=== PATIENT | female | born 1950 | race Caucasian/White ===

== ENCOUNTER 2020-05-30 13:10 | Outpatient (CLI) | payer MEDICARE, SELFPAY ==
--- NOTE | ~2020-05-30 | XR_ITS ---
XR lumbar spine 2-3V DATE: 05/30/2020 13:37 INDICATION: Generalized low back pain. Lumbar radiculopathy. TECHNIQUE: AP, lateral, coned lateral lumbosacral views COMPARISON: None FINDINGS: There is diffuse osteopenia. Status post interbody spinal fusion at L5-S1. There is severe degenerative disc disease at L1-2, moderate degenerative disc disease at L2-3. L3-4 a nd L4-5 interspaces are well preserved. No fracture or bone destruction. The lumbar pedicles are intact. No spondylolisthesis. Normal sacroiliac joints. There is a very prominent amount of fecal material in the rectum and colon. IMPRESSION: Diffuse osteopenia Severe degenerative disc disease at L1-2 Moderate degenerative disc disease at L2-3 Status post interbody spinal fusion at L5-S1 Reviewed, dictated and finalized at location B. SORTER
== END 2020-05-30 13:11 | disposition home or self-care (01) ==
PROVIDERS: PCP Family Medicine; Visit Provider Family Medicine
DX: M54.16 Radiculopathy, lumbar region (principal); M51.36 Other intervertebral disc degeneration, lumbar region; Z98.1 Arthrodesis status; M85.88 Other specified disorders of bone density and structure, other site
CPT/HCPCS: 72100

== ENCOUNTER → 2020-06-10 11:01 | Outpatient (CLI) | payer MEDICARE, SELFPAY ==
--- NOTE | ~2020-06-10 | MR_ITS ---
EXAMINATION: MR lumbar spine wo con DATE: 06/10/2020 11:52 INDICATION: Lumbar radiculopathy. TECHNIQUE: Magnetic resonance imaging (MRI) of the lumbar spine was performed without intravenous con trast. Sequences included sagittal T2-weighted FSE, sagittal T2-weighted FS FSE, sagittal T1-weighted FSE, and axial T2-weighted FSE. COMPARISON: Lumbar spine radiographs 05/30/2020 FINDINGS: There is 4 degrees levocurvature of lumbar spine. There is 3 mm retrolisthesis of L1 on L2 and L2 on L3. There is a burst fracture of T11 with 1/5 loss of height, bone marrow edema, and retrop ulsion of bone 3 mm into central spinal canal. There are changes of anterior fusion procedure at L5-S 1 with interbody devices. There is severely decreased disc height at L1-L2 and mildly decreased disc height at L2-L3 with endplate remodeling. The distal spinal cord signal intensity is normal. The conu s medullaris is at L1. The following disc levels are specifically discussed: L1-L2: The disc is bulging. There is no facet joint osteoarthritis. There is mild bilateral neural fo raminal stenosis. There is mild central canal stenosis. L2-L3: The disc is bulging and has an annular fissure. There is moderate right and mild left facet lily int osteoarthritis. There is mild bilateral neural foraminal stenosis. There is mild central canal st enosis. L3-L4: The disc is bulging. There is moderate bilateral facet joint osteoarthritis. There is mild yael ateral neural foraminal stenosis. There is mild central canal stenosis. L4-L5: The disc is bulging and has an annular fissure. There is moderate bilateral facet joint osteoa rthritis. There is mild bilateral neural foraminal stenosis. There is mild central canal stenosis. L5-S1: There is mild right and moderate left facet joint osteoarthritis. There is mild lateral neural foraminal stenosis. There is no central canal stenosis. IMPRESSION: 1. Subacute T11 burst fracture. 2. Severe lumbar spondylosis. 3. Anterior fusion procedure at L5-S1. Reviewed, dictated and finalized at location A. Y ADJUSTER
== END ==
PROVIDERS: PCP Family Medicine; Visit Provider Family Medicine
DX: S22.081A Stable burst fracture of T11-T12 vertebra, initial encounter for closed fracture (principal); M43.17 Spondylolisthesis, lumbosacral region; M54.17 Radiculopathy, lumbosacral region; Z98.1 Arthrodesis status; M48.07 Spinal stenosis, lumbosacral region
CPT/HCPCS: 72148

== ENCOUNTER → 2020-06-19 09:32 | Outpatient (CLI) | payer MEDICARE, SELFPAY ==
--- NOTE | ~2020-06-19 | MR_ITS ---
EXAMINATION: MR thoracic spine wo con DATE: 06/19/2020 10:36 INDICATION: Thoracic back pain. TECHNIQUE: Magnetic resonance imaging (MRI) of the thoracic spine was performed without intravenous c ontrast. Sagittal localizer T1-weighted FSE of the cervical spine was obtained. Thoracic spine sequen logan included sagittal T2-weighted FSE, sagittal T1-weighted FSE, sagittal STIR FSE, and axial T2-weig hted FSE. COMPARISON: Lumbar spine MRI 06/10/2020 FINDINGS: Bone alignment is normal. There is a burst fracture of T12 with 1/5 loss of height, retropu lsion of bone 3 mm into central spinal canal, and bone marrow edema. There are hemangiomas in T9 and T10 vertebral bodies. There is multilevel facet joint osteoarthritis, severe at many levels. On the r ight, there is mild neural foraminal stenosis at T8-T9, T9-T10, and T10-T11. On the left, there is mi ld neural foraminal stenosis at T3-T4, T4-T5, T8-T9, T9-T10, and T11-T12. The discs do not extend bey ond the endplate margins. There is mild central canal stenosis at T11. The spinal cord signal intensi ty is normal. IMPRESSION: 1. Subacute T11 burst fracture, stable from 06/10/2020. 2. Mild thoracic spondylosis. Reviewed, dictated and finalized at location B. IELD DEFENCE GUARD
== END ==
PROVIDERS: PCP Family Medicine; Visit Provider Nurse Practitioner Adult Health
DX: M47.894 Other spondylosis, thoracic region (principal); S22.081A Stable burst fracture of T11-T12 vertebra, initial encounter for closed fracture; X58.XXXA Exposure to other specified factors, initial encounter
CPT/HCPCS: 72146

== ENCOUNTER → 2020-08-30 12:27 | Outpatient (CLI) | payer MEDICARE, SELFPAY ==
--- NOTE | ~2020-08-30 | DEXA_ITS ---
Bone Density Report Name: Caryl Holguin Age: 70 Sex: Female Ethnicity: White Date of : 1950 Indication: osteopenia; height loss; prior fracture; postmenopausal Referring Provider: Oskar, Bhavna Mohr Study: Bone densitometry was performed. Exam Date: August 30, 2020 Accession number: [id number] Bone Density: Region BMD T-score Z-score Classification AP Spine (L1-L4) 0.754 -2.7 -0.6 Osteoporosis Femoral Neck (Left) 0.563 -2.6 -0.8 Osteoporosis Total Hip (Left) 0.678 -2.2 -0.7 Osteopenia Femoral Neck (Right) 0.563 -2.6 -0.8 Osteoporosis Total Hip (Right) 0.681 -2.1 -0.7 Osteopenia Total Hip Mean 0.680 -2.2 -0.7 Osteopenia World Health Organization criteria for BMD impression classify patients as: Normal (T-score at or above -1.0), Osteopenia (T-score between -1.0 and -2.5), or Osteoporosis (T-score at or below -2.5). 10-year Fracture Risk: FRAX not reported because: Some T-score for Spine Total or Hip Total or Femoral Neck at or below -2.5 Prior hip or vertebral fracture Previous Exams: Region Exam Age BMD T-score BMD Change BMD Change Date g/cm2 vs Baseline vs Previous Total Hip(Left) 08/30/2020 70 0.678 -2.2 -0.097* -0.097* 08/15/2004 54 0.775 -1.4 Total Hip(Right) 08/30/2020 70 0.681 -2.1 -0.101* -0.101* 08/15/2004 54 0.782 -1.3 *Denotes significance at 95% confidence level, LSC for Total Hip = 0.027 g/cm2 Clinical Information Provided by Patient: Have had a previous hip or vertebral fracture Has had a low trauma fracture Patient maximum height was 64.0 Menopause Age: 54 No regular weight bearing exercise Drinks caffeinated beverages Onset of menses at age 13 Number of children 3 Impression: The patient has established osteoporosis, based on the Total Spine T-score and the existence of a prior fracture. The patient has risk factors, including: previous fracture. The BMD for the Total Hip(Left) decreased, changing by -0.097 since the last DXA exam. The BMD for the Total Hip(Right) decreased, changing by -0.101 since the last DXA exam. Discussion: HIGH RISK OF FRACTURE. BONE DENSITY IS UNDESIRABLY LOW AT ONE OR MORE SKELETAL SITES, CONSISTENT WITH POSTMENOPAUSAL OSTEOPOROSIS. This patient's lowest T-score, in a patient who has previously fractured, meets the World Health Organization's (WHO) criteria for severe osteoporosis. In untreated patients, the risk of osteoporotic fracture increases approximately two-fold for each 1.0 SD decrea
--- NOTE | ~2020-08-30 | MM_ITS ---
EXAMINATION: MM screening [facility] BI w anthony HISTORY: Screening TECHNIQUE: Craniocaudal and mediolateral oblique 3-D tomosynthesis images were obtained and synthetic 2-D images were generated. CAD analysis was submitted and interpreted. COMPARISON: Comparison to multiple prior studies sequentially, with oldest reviewed study dated 04/09. BREAST PARENCHYMAL COMPOSITION: There are scattered areas of fibroglandular density. FINDINGS: There is no evidence of suspicious mass, calcification, or architectural distortion to sugg est malignancy in either breast. There has been no suspicious interval change. IMPRESSION: 1. No mammographic evidence of malignancy. 2. Recommend routine screening mammography in one year. BI-RADS Category 1: Negative Reviewed, dictated and finalized at location A. GRAM AND LETTER PASTER
== END ==
PROVIDERS: PCP Family Medicine; Visit Provider Nurse Practitioner Obstetrics & Gynecology
DX: Z12.31 Encounter for screening mammogram for malignant neoplasm of breast (principal); Z78.0 Asymptomatic menopausal state; M81.0 Age-related osteoporosis without current pathological fracture; M85.852 Other specified disorders of bone density and structure, left thigh; M85.851 Other specified disorders of bone density and structure, right thigh
CPT/HCPCS: 77063; 77067; 77080

== ENCOUNTER → 2020-10-15 08:12 | Outpatient (CLI) | payer MEDICARE, SELFPAY ==
--- NOTE | ~2020-10-15 | XR_ITS ---
EXAMINATION: XR lumbar spine 6V w bending EXAM DATE: 10/15/2020 08:42 INDICATION: Lumbago, Thoracic back pain. Symptoms 6 months. TECHNIQUE: Lumber spine frontal, lateral, lateral L5-S1 projections for interpretation. Additional la teral flexion and lateral extension projections obtained. Comparison is made to prior examination f rom 05/30/2020. FINDINGS: There are 2 interbody devices at L5-S1. No spondylolysis suspected. There is 2-3 mm retrol isthesis L1 on L2 and L2 on L3 on all of the lateral projections. There is moderate L1-2 disc disease and mild to moderate at L2-3. There is mild to moderate lumbar facet arthropathy. Lumbar vertebral b giovani heights appear well-maintained. There is a treated T11 burst fracture. There are no acute fractur es identified. Mild lumbar levoscoliosis. Sacrum, sacroiliac joints, sacral arcuate lines are intact. Paraspinal soft tissue is unremarkable. IMPRESSION: 1. L1-2 moderate disc disease. 2. Mild to moderate facet arthropathy. 3. Mild levoscoliosis. Reviewed, dictated and finalized at location A.
--- NOTE | ~2020-10-15 | XR_ITS ---
EXAMINATION: XR thoracic spine 3V EXAM DATE: 10/15/2020 08:42 INDICATION: Lumbago, Thoracic back pain. Symptoms 6 months. TECHNIQUE: Frontal and lateral projections of the thoracic spine as well as lateral swimmers projecti on of the upper thoracic spine for interpretation. Correlation is made to MR thoracic spine 06/19/2020 . FINDINGS: There is a chronic T11 burst fracture with mild to moderate loss of this vertebral body he ight, and methylmethacrylate injection. Otherwise the thoracic vertebral body heights appear well-josh ntained. The vertebral bodies are aligned in the AP dimension. There are no bony erosions identified. Paraspinal soft tissue is unremarkable. IMPRESSION: 1. Treated chronic mild to moderate burst fracture at T11. 2. No acute findings. Reviewed, dictated and finalized at location A.
== END ==
PROVIDERS: Visit Provider Nurse Practitioner Adult Health
DX: M51.36 Other intervertebral disc degeneration, lumbar region (principal)
CPT/HCPCS: 72072; 72114

== ENCOUNTER → 2021-02-04 08:05 | Outpatient (CLI) | payer MEDICARE, SELFPAY ==
--- NOTE | ~2021-02-04 | XR_ITS ---
EXAMINATION: XR knee RT min 4V DATE: 02/04/2021 08:52 INDICATION: Right knee pain TECHNIQUE: Four views of the right knee were obtained. COMPARISON: None. FINDINGS: Alignment is normal. No fracture or osteochondral lesion. There is mild tricompartmental os teoarthritis characterized by tiny marginal osteophytes. There is a small joint effusion. Soft tissue s are unremarkable. IMPRESSION: 1. Small knee joint effusion. Reviewed, dictated and finalized at location A.
== END ==
PROVIDERS: PCP Family Medicine; Visit Provider Nurse Practitioner Adult Health
DX: M25.561 Pain in right knee (principal); M25.461 Effusion, right knee
CPT/HCPCS: 73564

== ENCOUNTER 2021-07-31 00:08 | Day surgery (SDC) | payer MEDICARE, SELFPAY ==
[2021-07-18 08:32] VITALS: BMI 26.4
[2021-07-31 06:54] VITALS: BP 125/78; PULSE 72; RESP 18; TEMP 36.1; O2SAT 100; BMI 26.4
[2021-07-31] MEDS: LACTATED RINGERS 1,000 ML 150 ML IV CONT (07:04)
--- NOTE | 2021-07-31 07:24 | WPDGICN ---
Assessment and Plan Assessment and plan (1) Encounter for screening colonoscopy: Code(s): Z12.11 - Encounter for screening for malignant neoplasm of colon Status: Acute Assessment and Plan: Patient presents for screening colonoscopy. Appears to be at average risk for colon polyps. Further recommendations will be given after endoscopy. GI Consult Note Consult date/time: 07/31/21 07:24 HPI: Caryl Holguin is a 71 year old female Presents for screening colonoscopy. Her current weight appetite and bowel movements are normal. She denies abdominal pain. She has had no bleeding. Family history is noncontributory. Last colonoscopy was in 2006. Review of Systems Review of Systems: All systems reviewed & are unremarkable except as noted in HPI and below PMFSH Past Medical History Medical History (Updated 07/31/21 @ 07:25 by Doug Sen MD) Dislocation of L4/L5 lumbar vertebra, initial encounter SUSANNAH (obstructive sleep apnea) Surgical History Surgical History (Updated 08/29/19 @ 16:34 by Michelle Raman CMA) History of shoulder surgery Family History Family History (Updated 08/03/18 @ 09:17 by DOCTOR UNKNOWN) Father Family history of malignant neoplasm of urinary bladder Social History Social History Smoking status: Never smoker Alcohol use details: Socially Spiritual care concerns: No Meds Home Medications and Allergies Home Medications Medication Instructions Recorded Confirmed Type pramipexole 1.5 mg tablet 1.5 mg PO DAILY #90 tablet 07/26/19 07/18/21 Rx valacyclovir 500 mg tablet 500 mg PO DAILY 08/30/19 07/18/21 History trazodone 50 mg tablet 25 mg PO DAILY tablet 08/31/19 07/18/21 History venlafaxine 150 mg 225 mg PO DAILY cap 08/31/19 07/18/21 History capsule,extended release 24 hr gabapentin 400 mg capsule 400 mg PO BID cap 11/29/19 07/31/21 History Allergies Allergy/AdvReac Type Severity Reaction Status Date / Time clavulanic acid Allergy Mild HIVES Unverified 07/31/21 06:50 Penicillins Allergy Mild HIVES Unverified 07/31/21 06:50 amoxicillin Allergy Unknown hives Verified 07/31/21 06:50 BETALACTAMASEIN Allergy Mild HIVES Uncoded 07/31/21 06:50 Vital Signs Vital Signs - 24 hr 07/31/21 06:54 Temperature 97 F L Pulse Rate 72 Respiratory Rate 18 Blood Pressure 125/78 Pulse Oximetry 100 Exam Narrative: physical exam reveals patient to be alert. Vital signs stable. HEENT exam is unremarkable. Patient is anicteric. Lungs are clear to auscultation and percussion. Heart is without murmur or extra sounds. Abdominal exam bowel sounds are present soft nontender with no organomegaly. Digital external rectal exam is normal.
--- NOTE | 2021-07-31 07:40 | WPDANESEPPF ---
Anes - Initial Pre Proc Eval Procedure: Operation Date: 07/31/21 08:00 Proposed Procedures p Screening Colonoscopy - Doug Sen MD Date/Time: 07/31/21 07:40 Surgeon: Doug Sen MD Pre Op Diagnosis: neoplasm screening Patient Data Age: 71 Gender: F Height: 1.63 m Weight: 69.8 kg Last Vital Signs Temp 97 F L 07/31/21 06:54 Pulse 72 07/31/21 06:54 Resp 18 07/31/21 06:54 BP 125/78 07/31/21 06:54 Pulse Ox 100 07/31/21 06:54 Allergies Allergy/AdvReac Type Severity Reaction Status Date / Time clavulanic acid Allergy Mild HIVES Unverified 07/31/21 06:50 Penicillins Allergy Mild HIVES Unverified 07/31/21 06:50 amoxicillin Allergy Unknown hives Verified 07/31/21 06:50 BETALACTAMASEIN Allergy Mild HIVES Uncoded 07/31/21 06:50 Home Medications Medication Instructions Recorded Confirmed Type pramipexole 1.5 mg tablet 1.5 mg PO DAILY #90 tablet 07/26/19 07/18/21 Rx valacyclovir 500 mg tablet 500 mg PO DAILY 08/30/19 07/18/21 History trazodone 50 mg tablet 25 mg PO DAILY tablet 08/31/19 07/18/21 History venlafaxine 150 mg 225 mg PO DAILY cap 08/31/19 07/18/21 History capsule,extended release 24 hr gabapentin 400 mg capsule 400 mg PO BID cap 11/29/19 07/31/21 History Patient hx anesthesia problems: none Family hx anesthesia problems: none Results Review: All pre-operative results and documents have been reviewed as part of the pre-operative evaluation. [facility] Past Medical History Medical History (Updated 07/31/21 @ 07:25 by Doug Sen MD) Dislocation of L4/L5 lumbar vertebra, initial encounter SUSANNAH (obstructive sleep apnea) Surgical History Surgical History (Updated 08/29/19 @ 16:34 by Michelle Raman [facility]) History of shoulder surgery Family History Family History (Updated 08/03/18 @ 09:17 by DOCTOR UNKNOWN) Father Family history of malignant neoplasm of urinary bladder Social History Social History Smoking status: Never smoker Alcohol use details: Socially Spiritual care concerns: No Anes - Eval Final PreProcedure Day of Procedure 07/31/21 07:40 Patient weight: normal Heart: regular rate and rhythm Lungs: clear to auscultation Airway: Mallampati scale class II Neurological: alert and oriented Last oral intake: >/= 8 hours ASA classification: II Emergent: no Anesthetic plan: proceed Anesthesia type and monitoring: general GIVS and standard monitoring Results Review: All pre-operative results and documents have been reviewed as part of the pre-operative evaluation. Informed Consent: The patient's anesthetic plan and its attendant risks and benefits were discussed with the patient/family/POA. Questions were solicited and answers provided to the satisfaction of the patient/family/POA.
[2021-07-31 08:15] VITALS: BP 106/64; PULSE 74; RESP 16; O2SAT 100
[2021-07-31 08:25] VITALS: BP 123/71; PULSE 70; RESP 20; O2SAT 100
[2021-07-31 08:34] VITALS: BP 134/76; PULSE 81; RESP 15; O2SAT 100
== END 2021-07-31 08:58 | disposition home or self-care (01) ==
PROVIDERS: PCP Family Medicine; Visit Provider Internal Medicine Gastroenterology
PROC: 0DJD8ZZ Inspection of Lower Intestinal Tract, Via Natural or Artificial Opening Endoscopic (ICD-10-PCS; CPT 45378; principal; 2021-07-31 08:00)
DX: Z12.11 Encounter for screening for malignant neoplasm of colon (principal); G47.33 Obstructive sleep apnea (adult) (pediatric)
CPT/HCPCS: G0121; J2704; J7120

== ENCOUNTER 2022-06-24 08:07 | Emergency (ER) | payer MEDICARE, SELFPAY ==
--- NOTE | ~2022-06-24 | CT_ITS ---
Noncontrast CT scan of the thoracic spine CLINICAL HISTORY: Back pain TECHNIQUE: Axial noncontrast imaging of the thoracic spine was performed. Sagittal and coronal reform atted images were constructed. Dose reduction technique was used on this scan by utilizing automated exposure control and iterative reconstruction technique. COMPARISON: Radiographs of the thoracic spine dated 10/15/2020 FINDINGS: Chronic compression fracture deformity of T11 with vertebroplasty cement is present, essent ially unchanged since 10/15/2020. There is a mild compression deformity of T7, probably acute, with los s of height and focal discontinuity of the superior endplate. No other fracture or subluxation seen i n the remainder of the thoracic spine. Intervertebral disc spaces are well preserved throughout the thoracic spine. No disc bulge or herniat ion identified in the thoracic level. No spinal canal stenosis, cord compression, or neural foraminal narrowing identified. Paravertebral soft tissues are unremarkable. IMPRESSION: Acute, mild compression fracture of T7. Chronic compression fracture of T11 with vertebroplasty cement, stable since 10/15/2020. Reviewed, dictated and finalized at location [] ECTRIC MACHINE OPERATOR
[2022-06-24 08:18] VITALS: BP 135/84; PULSE 81; RESP 18; TEMP 36.9; O2SAT 97
--- NOTE | 2022-06-24 08:45 | ED.GENADULT ---
HPI - General Adult General Chief complaint: Back Pain/Injury Stated complaint: back pain Time Seen by Provider: 06/24/22 08:24 History of Present Illness HPI narrative: 72-year-old female with previous history of back fracture with kyphoplasty presenting to the emergency department for evaluation of mid back pain. Patient states she moved into a new home and has been actively painting. Patient states that she was on a ladder and twisted and injured her back. Patient complains of left paraspinal back pain. Patient states she does have pain with ambulation but denies any associated numbness or weakness. Related Data Home Medications Medication Instructions Recorded Confirmed valacyclovir 500 mg tablet 500 mg PO DAILY 08/30/19 07/18/21 trazodone 50 mg tablet 25 mg PO DAILY 08/31/19 07/18/21 venlafaxine 150 mg 225 mg PO DAILY 08/31/19 07/18/21 capsule,extended release 24 hr (Effexor XR) gabapentin 400 mg capsule 400 mg PO BID 11/29/19 07/31/21 Allergies Allergy/AdvReac Type Severity Reaction Status Date / Time clavulanic acid Allergy Mild HIVES Verified 06/24/22 08:21 Penicillins Allergy Mild HIVES Verified 06/24/22 08:21 amoxicillin Allergy Unknown hives Verified 06/24/22 08:21 BETALACTAMASEIN Allergy Mild HIVES Uncoded 06/24/22 08:21 Review of Systems Review of Systems: CONSTITUTIONAL: Denies fever, chills, or sweats. EYES: Denies visual changes, redness, or discharge. ENT: Denies rhinorrhea, congestion, sore throat, or otalgia. CARDIOVASCULAR: Denies chest pain, palpitations, or edema. RESPIRATORY: Denies cough or dyspnea. GASTROINTESTINAL: Denies abdominal pain, nausea, vomiting, or diarrhea. GENITOURINARY: Denies dysuria or hematuria. SKIN: Denies rash or itching. MUSCULOSKELETAL: See HPI NEUROLOGIC: Denies headache, numbness, or weakness. [facility] Past Medical History Medical History (Updated 06/24/22 @ 11:08 by Jerardo Banks MD) Dislocation of L4/L5 lumbar vertebra, initial encounter SUSANNAH (obstructive sleep apnea) Surgical History Surgical History (Updated 08/29/19 @ 16:34 by Michelle Raman CMA) History of shoulder surgery Family History Family History (Updated 08/03/18 @ 09:17 by DOCTOR UNKNOWN) Father Family history of malignant neoplasm of urinary bladder Social History Social History Smoking status: Never smoker Alcohol use details: Socially Spiritual care concerns: No Exam Narrative: APPEARANCE: Well appearing, no pain, no distress, well-nourished. HEAD: normocephalic, atraumatic. EYES: PERRLA/EOMI, conjunctivae clear. NOSE: Normal no drainage NECK: Supple. No adenopathy, no masses. RESPIRATORY: Airway patent, respirations nonlabored. Clear to auscultation bilaterally, no rales, rhonchi, wheezing. CARDIOVASCULAR: Regular rate and rhythm without murmurs rubs or gallops. ABDOMINAL: Soft, nontender, nondistended, normal bowel sounds MUSCULOSKELETAL: Moves all extremities. Strength/ROM intact, No edema, No calf tenderness. Thoracic spine tenderness to palpation more left paraspinal tenderness than midline. No deformities or step-offs NEURO: Alert. Cranial nerves II through XII intact. Grossly intact SKIN: Warm, dry. Normal Color Course Course Emergency Course: Patient does have a T7 compression fracture. Case was discussed with Dr. López. Patient with TLSO and patient was comfortable for the plan for discharge and close follow-up. Patient will be provided medications for pain control for home. Vital Signs Vital signs: Vital Signs Temperature 98.4 F 06/24/22 08:18 Pulse Rate 81 06/24/22 08:18 Respiratory Rate 18 06/24/22 08:18 Blood Pressure 135/84 06/24/22 08:18 Pulse Oximetry 97 06/24/22 08:18 Oxygen Delivery Room Air 06/24/22 08:18 Temperature 98.4 F 06/24/22 08:18 Pulse Rate 81 06/24/22 08:18 Respiratory Rate 18 06/24/22 08:18 Blood Pressure 135/84 06/24/22 08:18 Pulse Oximetry 97 06/24/22 08:18 Oxygen Delivery R
[2022-06-24] MEDS: HYDROcodone/acetaminophen (*CRX) 5-325 MG TABLET 1 TAB PO (09:48)
--- NOTE | 2022-06-24 10:51 | PC.NURSE ---
Ambulated to bathroom. Reports pain decreased with abd. binder in place. Gait steady.
== END 2022-06-24 11:26 | disposition home or self-care (01) ==
PROVIDERS: Emergency Provider Emergency Medicine; PCP Family Medicine
DX: S22.060A Wedge compression fracture of T7-T8 vertebra, initial encounter for closed fracture (principal); G47.33 Obstructive sleep apnea (adult) (pediatric); X50.9XXA Other and unspecified overexertion or strenuous movements or postures, initial encounter
CPT/HCPCS: 72128; 99284; A9270

== ENCOUNTER 2023-03-01 17:02 | Outpatient (CLI) | payer MEDICARE, SELFPAY ==
[2023-03-01 18:02] LABS: Basophils Percent Auto 0.6 % (0.2-1.2); Eosinophils Percent Auto 0.6 % (0-4.4); Hematocrit 42.2 % (37.0-47.0); Hemoglobin 13.6 g/dL (12.0-15.0); Immature Granulocyte Absolute 0.01 K/mm3 (0.00-0.031); Immature Granulocyte Percent A 0.3 % (0-0.5); Lymphocytes Absolute Auto 1.32 K/mm3 (0.9-3.2); Lymphocytes Percent Auto 39.2 % (18.3-44.2); Mean Corpuscular HGB Conc 32.2 g/dl (32-36); Mean Corpuscular Volume 96.1 fl (80-100); Mean Platelet Volume 9.9 fl (7.4-10.4); Monocytes Absolute Auto 0.3 K/mm3 (0.1-0.6); Monocytes Percent Auto 8.9 % (2.6-8.5); Neutrophils Absolute Auto 1.7 K/mm3 (1.3-6.7); Neutrophils Percent Auto 50.4 % (45.5-73.1); Platelet Count Result 211 k/mm3 (150-375); Red Blood Count 4.39 M/mm3 (4.2-5.4); Red Cell Distribution Width 12.7 % (11.5-14.5); White Blood Count 3.4 K/mm3 (4.5-10.0)
[2023-03-01 18:19] LABS: Alanine Aminotransferase 23 U/L (6-35); Albumin Level 4.4 g/dL (3.5-5.1); Alkaline Phosphatase 61 U/L (38-126); Anion Gap 4 mmol/L (8-16); Aspartate Amino Transferase 22 U/L (14-36); Bilirubin,Total 0.6 mg/dL (0.2-1.3); Blood Urea Nitrogen 14 mg/dL (7-17); Calcium 8.7 mg/dL (8.4-10.2); Carbon Dioxide 31 mmol/L (22-30); Chloride 101 mmol/L (98-107); Estimated Glomerular Filt Rate > 60; Glucose 92 mg/dL (65-110); Potassium 3.7 mmol/L (3.4-5.0); Sodium 136 mmol/L (137-145)
[2023-03-01 18:57] LABS: Free T4 Free Thyroxine 1.05 ng/mL (0.78-2.19); Vitamin D 25 Hydroxy 43.3 ng/mL
[2023-03-01 20:01] LABS: Hemoglobin A1C 5.7 % (<5.7)
== END 2023-03-01 17:03 | disposition home or self-care (01) ==
LOC: ANHLAB 17:04
PROVIDERS: PCP Family Medicine; Visit Provider Family Medicine
DX: E78.5 Hyperlipidemia, unspecified (principal); E55.9 Vitamin D deficiency, unspecified; E53.8 Deficiency of other specified B group vitamins; R73.9 Hyperglycemia, unspecified
CPT/HCPCS: 36415; 80053; 82306; 82607; 83036; 84439; 84443; 85025

== ENCOUNTER → 2023-03-09 13:20 | Outpatient (CLI) | payer MEDICARE, SELFPAY ==
--- NOTE | ~2023-03-09 | DEXA_ITS ---
Bone Density Report Name: MINDY CARBAJAL Age: 72 Sex: Female Ethnicity: White Date of : 1950 Indication: postmenopausal osteoporosis; height loss; prior fracture; Referring Provider: OSMAR SNIDER Study: Bone densitometry was performed. Exam Date: March 09, 2023 Accession number: [id number] Bone Density: Region BMD T-score Z-score Classification AP Spine (L1-L4) 0.744 -2.8 -0.5 Osteoporosis Femoral Neck (Left) 0.548 -2.7 -0.8 Osteoporosis Total Hip (Left) 0.674 -2.2 -0.6 Osteopenia Femoral Neck (Right) 0.565 -2.6 -0.7 Osteoporosis Total Hip (Right) 0.663 -2.3 -0.7 Osteopenia Total Hip Mean 0.669 -2.3 -0.7 Osteopenia World Health Organization criteria for BMD impression classify patients as: Normal (T-score at or above -1.0), Osteopenia (T-score between -1.0 and -2.5), or Osteoporosis (T-score at or below -2.5). 10-year Fracture Risk: FRAX not reported because: Some T-score for Spine Total or Hip Total or Femoral Neck at or below -2.5 Prior hip or vertebral fracture Previous Exams: Region Exam Age BMD T-score BMD Change BMD Change Date g/cm2 vs Baseline vs Previous AP Spine(L1-L4) 03/09/2023 72 0.744 -2.8 -0.011 -0.011 08/30/2020 70 0.754 -2.7 Total Hip(Left) 03/09/2023 72 0.674 -2.2 -0.102* -0.005 08/30/2020 70 0.678 -2.2 -0.097* -0.097* 08/15/2004 54 0.775 -1.4 Total Hip(Right) 03/09/2023 72 0.663 -2.3 -0.119* -0.018 08/30/2020 70 0.681 -2.1 -0.101* -0.101* 08/15/2004 54 0.782 -1.3 *Denotes significance at 95% confidence level, LSC for AP Spine = 0.022 g/cm2, LSC for Total Hip = 0.027 g/cm2 Clinical Information Provided by Patient: Have had a previous hip or vertebral fracture Has had a low trauma fracture Has used the following medications: Vitamin D Patient maximum height was 64.0 Menopause Age: 54 Drinks caffeinated beverages Onset of menses at age 13 Number of children 3 Impression: The patient has established osteoporosis, based on the Total Spine T-score and the existence of a prior fracture. The patient has risk factors, including: previous fracture. No significant bone loss was observed. Discussion: HIGH RISK OF FRACTURE. BONE DENSITY IS UNDESIRABLY LOW AT ONE OR MORE SKELETAL SITES, CONSISTENT WITH POSTMENOPAUSAL OSTEOPOROSIS. This patient's lowest T-score, in a patient who has previously fractured, meets t
--- NOTE | ~2023-03-09 | MM_ITS ---
EXAMINATION: MM screening [facility] BI w anthony HISTORY: Screening mammogram TECHNIQUE: Craniocaudal and mediolateral oblique 3-D tomosynthesis images were obtained and synthetic 2-D images were generated. CAD analysis was submitted and interpreted. COMPARISON: 08/30/2020, 11/30/2017, 05/16/2013 BREAST PARENCHYMAL COMPOSITION: There are scattered areas of fibroglandular density. FINDINGS: No suspicious mass, calcification, or architectural distortion are identified in either jayden ast to suggest malignancy. There has been no suspicious interval change. IMPRESSION: 1. No mammographic evidence of malignancy. 2. Recommend routine screening mammography in one year. BI-RADS Category 1: Negative Reviewed, dictated and finalized at location A.
== END ==
PROVIDERS: PCP Student in an Organized Health Care Education/Training Program; Visit Provider Family Medicine
DX: Z12.31 Encounter for screening mammogram for malignant neoplasm of breast (principal); M81.0 Age-related osteoporosis without current pathological fracture; Z78.0 Asymptomatic menopausal state; M85.852 Other specified disorders of bone density and structure, left thigh; M85.851 Other specified disorders of bone density and structure, right thigh
CPT/HCPCS: 77063; 77067; 77080

== ENCOUNTER 2024-06-03 18:23 | Emergency (ER) | payer MEDICARE, SELFPAY ==
[2024-06-03 18:27] VITALS: BP 119/64; PULSE 85; RESP 18; TEMP 36.5; O2SAT 100
--- NOTE | 2024-06-03 18:58 | ED_ITS ---
HPI - Wound/Laceration General Chief Complaint: Wound/Laceration Stated Complaint: finger lac Time Seen by Provider: 06/03/24 18:27 Source: patient Mode of arrival: ambulatory Limitations: no limitations History of Present Illness HPI narrative: Patient is a 73 y/o female who presents to the ED with c/o laceration to her L thumb. Patient reports she was cutting onions prior to arrival when the knife slipped and she sustained a laceration to her L thumb. Went to her an and was referred here for further evaluation. Tetanus UTD. No other injuries. No numbness. Related Data Home Medications Medication Instructions Recorded Confirmed trazodone 50 mg tablet 25 mg PO DAILY 08/31/19 07/18/21 venlafaxine 150 mg 225 mg PO DAILY 08/31/19 07/18/21 capsule,extended release 24 hr (Effexor XR) gabapentin 400 mg capsule 400 mg PO BID 11/29/19 07/31/21 Allergies Allergy/AdvReac Type Severity Reaction Status Date / Time clavulanic acid Allergy Mild HIVES Verified 06/03/24 18:30 Penicillins Allergy Mild HIVES Verified 06/03/24 18:30 amoxicillin Allergy Unknown hives Verified 06/03/24 18:30 BETALACTAMASEIN Allergy Mild HIVES Uncoded 06/03/24 18:30 Review of Systems Review of Systems: All systems reviewed & are unremarkable except as noted in HPI. All systems reviewed & are unremarkable except as noted in HPI and below PMFSH Past Medical History Medical History Dislocation of L4/L5 lumbar vertebra, initial encounter SUSANNAH (obstructive sleep apnea) Screening for breast cancer Surgical History Surgical History History of shoulder surgery Family History Family History Father Family history of malignant neoplasm of urinary bladder Social History Social History Smoking status: Never smoker Alcohol intake: current Alcohol use details: Socially Substance use: never Living arrangements: alone Occupation/Education: occupation Additional occupation/education comments: [employer] Gender identity (if verbalized by the patient): Female Sexual Orientation (if Verbalized by the Patient): Straight or Heterosexual Spiritual care concerns: No Exam Narrative: GENERAL: Well appearing, non-toxic, in no acute distress. HEAD: Normocephalic, atraumatic. RESPIRATORY: Airway patent, respirations nonlabored. CARDIOVASCULAR: Regular rate and rhythm MUSCULOSKELETAL: Moves all extremities. No gross deformities. SKIN: Warm, dry, normal color. Curvilinear laceration to lateral edge of L thumb finger pad, end alongs edge of nail plate but no nail involvement. Minimal active bleeding. NEURO: A&O X3. Speech clear. PSYCHIATRIC: Appropriate mood and affect. Normal interaction. Course Vital Signs Vital signs: Vital Signs Temperature 97.7 F 06/03/24 18:27 Pulse Rate 85 06/03/24 18:27 Respiratory Rate 18 06/03/24 18:27 Blood Pressure 119/64 06/03/24 18:27 Pulse Oximetry 100 06/03/24 18:27 Oxygen Delivery Room Air 06/03/24 18:27 Temperature 97.7 F 06/03/24 18:27 Pulse Rate 85 06/03/24 18:27 Respiratory Rate 18 06/03/24 18:27 Blood Pressure 119/64 06/03/24 18:27 Pulse Oximetry 100 06/03/24 18:27 Oxygen Delivery Room Air 06/03/24 18:27 Procedures Laceration Laceration 1: Date: 06/03/24 Time: 19:40 Site: hand (thumb) Side (If applicable): left Size (cm): 1 Description: linear Depth: simple, single layer Local Anesthetic: lidocaine 1% Amount of anesthesia used (mL): 3 Pre-repair: wound explored and irrigated ====== Skin Level ====== Skin layer closed with: nylon Size (cm): 5-0 Number of sutures: 2 Technique: simple, interrupted ====== Subcutaneous Layer ====== ====== Muscle Layer ====== ====== Tendon Layer ====== MDM - Wound/Laceration MDM Narrative Medical decision making narrative: Laceration repaired w/o complications. Tetanus UTD. Patient neurovascularly intact. Given wound care instructions and reasons to return. D/C in stable condition. Medical Records Attestation: I reviewed the patient's medical records. Discharge Plan Discharge Clinical Impression: Laceration of left thumb Qualifiers: Encounter type: initial encounter Damage to nail status: without damage Foreign body presence: without foreign body Qualified Code(s): S61.012A - Laceration without foreign body of left thumb without damage to nail, initial encounter Patient Disposition: Home, Self-Care Condition: Stable Instructions: Antibiotic Form, Care For Your Stitches (ED), Laceration (ED) Additional Instructions: Return to the ED or visit an urgent care or your PCP for follow-up and wound check/suture removal in 10 to 14 days. Keep the wound as dry as possible for 24 hours. You may remove the bandage after 24 hours and wash with simple soap and water, but do not scrub. Re-bandage as needed. Return to the ED if you e xperience uncontrolled bleeding, fever, chills, pus-like drainage, or redness/swelling/warmth surrounding the wound, as these could be signs of an infection. Prescriptions: No Action venlafaxine [Effexor XR] 150 mg capsule,extended release 24hr 225 mg PO DAILY trazodone 50 mg tablet 25 mg PO DAILY gabapentin 400 mg capsule 400 mg PO BID pramipexole 1.5 mg tablet 1.5 mg PO DAILY Qty: 90 2RF Rx Instructions: Take 1 tablet by mouth 1-2 hours before bedtime. valacyclovir 500 mg tablet 500 mg PO DAILY Qty: 30 6RF Follow-up/Referrals: Tiffany Strickland MD [Primary Care Provider] - Time of Disposition: 19:47
== END 2024-06-03 20:18 | disposition home or self-care (01) ==
PROVIDERS: Emergency Provider Physician Assistant; PCP Family Medicine
DX: S61.012A Laceration without foreign body of left thumb without damage to nail, initial encounter (principal); W26.0XXA Contact with knife, initial encounter; Y93.G1 Activity, food preparation and clean up; G47.33 Obstructive sleep apnea (adult) (pediatric)
CPT/HCPCS: 12001; 99282

== ENCOUNTER 2024-08-24 12:33 | Outpatient (CLI) | payer MEDICARE, SELFPAY ==
--- NOTE | ~2024-08-24 | XR_ITS ---
Right wrist Technique: PA, oblique, lateral, and ulnar deviation views were obtained. Clinical History: Pain Findings: No acute fracture or dislocation is seen. Chronic nonunited ulnar styloid process fracture present. Joint spaces are preserved. Soft tissues are unremarkable. Impression: No acute abnormality. 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 Reviewed, dictated and finalized at [facility]. LATOR HELPER Impression: No acute abnormality. 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
== END 2024-08-24 12:34 | disposition home or self-care (01) ==
LOC: MICIMG 12:35
PROVIDERS: PCP Family Medicine; Visit Provider Nurse Practitioner Family
DX: M25.531 Pain in right wrist (principal)
CPT/HCPCS: 73110

== ENCOUNTER 2025-01-25 07:18 | Outpatient (CLI) | payer MEDICARE, SELFPAY ==
--- NOTE | ~2025-01-25 | MM_ITS ---
EXAMINATION: MM screening amilcar BI w anthony HISTORY: Screening TECHNIQUE: Craniocaudal and mediolateral oblique 3-D tomosynthesis images were obtained and synthetic 2-D images were generated. CAD analysis was submitted and interpreted. COMPARISON: Comparison to multiple prior studies sequentially, with oldest reviewed study dated 11/30. BREAST PARENCHYMAL COMPOSITION: Not Dense: The breasts are almost entirely fatty. FINDINGS: There is no evidence of suspicious mass, calcification, or architectural distortion to sugg est malignancy in either breast. There has been no suspicious interval change. IMPRESSION: 1. No mammographic evidence of malignancy. 2. Recommend routine screening mammography in one year. BI-RADS Category 1: Negative Reviewed, dictated and finalized at location B.
== END 2025-01-25 07:19 | disposition home or self-care (01) ==
LOC: MICIMG 07:19
PROVIDERS: PCP Family Medicine; Visit Provider Family Medicine
DX: Z12.31 Encounter for screening mammogram for malignant neoplasm of breast (principal)
CPT/HCPCS: 77063; 77067

== ENCOUNTER 2025-02-06 22:34 | Emergency (ER) | payer MEDICARE, SELFPAY ==
--- NOTE | ~2025-02-06 | XR_ITS ---
HISTORY: Knee pain medial side COMPARISON: None TECHNIQUE: 3 views of right knee were performed FINDINGS: No acute or subacute fracture. Medial tibiofemoral joint space narrowing is identified sclerosis of the medial tibial plateau. No suprapatellar joint effusion is identified. The infrapatellar joint space is clear. IMPRESSION: Degenerative disease without acute fracture Reviewed, dictated and finalized at location A.
--- OUTSIDE RECORDS SUMMARY | 2025-02-06 22:37 | XMS_ITS ---
Author Organization [facility] Address [address] [place] [id number] Care Team Providers Care Production Superintendent Hydro Name Role Phone Dr. Tiffany Strickland Primary Care Provider [phone] Migration, Provider Unavailable Unavailable Allergies Allergen (clinical drug ingredient) Drug/Non Drug Allergy documented on EMR Reaction Allergy Type Onset Date Status amoxicillin / clavulanate Augmentin *Unknown Drug Allergy 01/27/2021 Active REASON FOR VISIT EMR-Mason Medications Medication SIG (Take, Route, Frequency, Duration) Notes Start Date End Date Status valACYclovir HCl 500 MG Tablet 1 Oral every day; Duration: 90 05/16/2024 05/10/2025 Active Venlafaxine HCl ER 75 MG Capsule Extended Release 24 Hour 3 Oral every day; Duration: 90 01/10/2024 01/03/2025 Active Gabapentin 400 MG Capsule 1 Oral two kale es a day; Duration: 90 03/27/2024 03/21/2025 Active Alendronate Sodium 70 MG Tablet Oral; Duration: 84 03/27/2024 02/25/2025 Active traZODone HCl 50 MG Tablet Oral; Duration: 90 07/202301/03/2025 Active Vitamin D3 50 MCG (1999 UT) Tablet 2.5 Oral every day; Duration: 0 08/28/2022 Active Pramipexole Dihydrochloride 1.5 MG Tablet Oral; Duration: 90 12/25/2023 12/18/2024 Active Social History Social History Additional Details Category Social Info Options Details Migrated Social History Migrated Social History Tobacco history:Never smoker , Marital status: , Alcohol history:Currently drinks alcohol ,notes : social Encounters Encounter Location Date Provider Diagnosis [facility] [address] [place] [address] 06/11/2024 Provider Migration Plan Of Treatment Next Appt Details Provider Name:Dr. Tiffany morejon, 02/19/2025 10:00:00 AM, [address] [facility], [place], [address], [phone] Progress Notes * Caryl CARBAJALDOB: 1 (74 yo F)Acc No.[id number]:06/11/2024 Patient: Caryl JAIME :1950 A ge:73 Y S ex:Female Phone: Address:[address] [place], [place] [address] [place], [place], [address] Subjective: * Chief Complaints: * E MR-Mason * Surgical History: kyphoplasty ,notes : x 2 Vertebrae fusion ,notes : L4-L5; Dr. Giron 09/1996 shoulder surgery ,notes : Right; Dr. Horne and Left 2015 Finger surgery 07/10/2010 * Family History: F ather: Bladder cancer, D iabetes mellitus Type 2. M other: CAD. * Social History: M igrated Social History: M igrated Social History: Tobacco history:Never smoker,Marital status:,Alcohol history:Currently drinks alcohol ,notes : social. * Medications: T akingtraZODone HCl 50 MG Tablet Oral , stop date 01/03/2025Pramipexole Dihydrochloride 1.5 MG Tablet Oral , stop date 12/18/2024lendronate Sodium 70 MG Tablet Oral , stop date 02/25/2025Vitamin D3 50 MCG (1999 UT) Tablet 2.5 Oral every day valACYclovir HCl 500 MG Tablet 1 Oral every day , stop date 05/10/2025Venlafaxine HCl ER 75 MG Capsule Extended Release 24 Hour 3 Oral every day , stop date 01/03/2025Gabapentin 400 MG Capsule 1 Oral two times a day , stop date 03/21/2025Taking traZODone HCl 50 MG Tablet Oral , stop date 01/03/2025Taking Pramipexole Dihydrochloride 1.5 MG Tablet Oral , stop date 12/18/2024Taking Alendronate Sodium 70 MG Tablet Oral , stop date 02/25/2025Taking Vitamin D3 50 MCG (1999 UT) Tablet 2.5 Oral every day Taking valACYclovir HCl 500 MG Tablet 1 Oral every day , stop date 05/10/2025Taking Venlafaxine HCl ER 75 MG Capsule Extended Release 24 Hour 3 Oral every day , stop date 01/03/2025Taking Gabapentin 400 MG Capsule 1 Oral two times a day , stop date 03/21/2025 * Allergies: A ugmentin: *Unknown - Allergy - Onset Date 01/27/2021 * * Date:
--- OUTSIDE RECORDS SUMMARY | 2025-02-06 22:37 | XMS_ITS | Clinical Summary ---
Author Organization [facility] [address] [facility] Address [address] [place] [address] Care Team Providers Care Rn Progressive Care Name Role Phone Lucille Camarena NP Primary Care Provider Allergies Active Allergy Reactions Criticality Noted Date Comments Amoxicillin Other (See comments) 11/09/2024 Potassium Other (See comments) 11/09/2024 Medications venlafaxine XR (EFFEXOR-XR) 75 mg 24 hr capsule Take 1 capsule (75 mg total) by mouth 3 (three) times a day Active valACYclovir (VALTREX) 500 mg tablet Take 1 tablet (500 mg total) by mouth daily 02/03/2021 Active traZODone (DESYREL) 50 mg tablet Active pramipexole (MIRAPEX) 0.75 mg tablet take 1 tablet (0.75MG) by oral route 3 times every day Active pantoprazole DR (PROTONIX) 40 mg EC tablet Active metFORMIN XR (GLUCOPHAGE XR) 500 mg 24 hr tablet 11/05/2024 Active magnesium oxide (Madden) 500 mg (301.6 mg elemental) tablet Take 1 tablet (500 mg total) by mouth daily Active gabapentin (NEURONTIN) 100 mg capsule take 3 capsule by oral route 3 times every day Active clonazePAM (KlonoPIN) 0.5 mg tablet Active Active Problems Problem Noted Date Diagnosed Date Urinary tract infectious disease 06/19/2018 Overview (11/09/2024): UTI;Recorded Elsewhere: No Location: [facility] Source: EHR Chronic: N Practice ID: [id number] Billable Time: 01:00:00 PM Syphilis contact 11/05/2017 Overview (11/09/2024): Encounter for STD screening;Recorded Elsewhere: No Location: [facility] Source: EHR Chronic: N Practice ID: [id number] Billable Time: 10:30:00 AM Osteoarthritis of cervical spine 09/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 Encounters Date Type Department Care Team Description 11/09/2024 8:10 AM CDT - 11/09/2024 11:59 PM CDT Hospital Encounter [facility] [address] [place] [address] Discharge Disposition: Discharge to home or self care 11/09/2024 8:00 AM CDT Office Visit [facility] Orthopaedic Surgery [address] [place] [address] Advanced Medicine [address] [place] [address] [place] [address] Uma Alicea MD De Quervain's syndrome (tenosynovitis) (Primary Dx); Right wrist pain from Last 3 Months Social History Tobacco Use Types Packs/Day Years Used Date Smoking Tobacco: Never Smokeless Tobacco: Never Tobacco Cessation:Counseling Given: Not Answered Comments Unknown Sex and Gender Information Value Date Recorded Sex Assigned at Not on file 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 Gender Identity Not on file Sexual Orientation Not on file Obstetrics History Last Filed Vital Signs Vital Sign Reading Time Taken Comments Blood Pressure - - Pulse - - Temperature - - Respiratory Rate - - Oxygen Saturation - - Inhaled Oxygen Concentration - - Weight 79.4 kg (175 lb) 11/09/2024 7:59 AM CDT Height 160 cm (5' 3) 11/09/2024 7:59 AM CDT Body Mass Index 31 11/09/2024 7:59 AM CDT Plan of Treatment Health Maintenance Due Date Last Done Comments Breast Cancer Screening-Mammogram 1950 Colon Cancer Screening-Colonoscopy 1950 Depression Screening 1950 Fall Risk Assessment 1950 Hepatitis C Screening 1950 Osteoporosis Screening-Bone Density Scan 1950 DTaP/Tdap/Td Vaccine (1 - Tdap) 1962 Hepatitis B Screening 1969 Zoster Vaccine (1 of 2) 2001 Well Visit 65+ 2016 Pneumococcal vaccine 65+ (2 of 2 - PPSV23) 08/16/2018 08/16/2017 Influenza Vaccine (#1) 2025 05/30/2020, 2013 Procedures Procedure Name Priority Date/Time Associated Diagnosis Comments XR TRANSFER OF OUTSIDE FILMS Routine 11/09/2024 8:10 AM CDT [place] INJECTION 1 TENDON SHEATH/LIGAMENT APONEUROSIS Routine 11/09/2024 8:00 AM CDT De Quervain's syndrome (tenosynovitis) from Last 3 Months Results * XR Outside Reference (11/09/2024 8:10 AM CDT) Impressions [facility] - 11/09/2024 8:10 AM CDT These images are for Reference purposes only and have not been reviewed by [facility] Radiology. There will be no report generated by a [facility] Radiologist. Narrative [facility] - 11/09/2024 8:10 AM CDT EXAMINATION: Images For Reference Purposes Only us Uma Alicea MD IMG XR PROCEDURES Final Result [facility] * [place] INJECTION 1 TENDON SHEATH/LIGAMENT APONEUROSIS (11/09/2024 8:00 AM CDT) Narrative Uma Alicea MD - 11/09/2024 8:00 AM CDT Uma Alicea MD 11/09/2024 8:33 AM De Judah's injection: R extensor compartment 1 Performed by: Uma Alicea MD Authorized by: Uma Alicea MD De Quervain's Injection: Consent Given by: Patient Timeout: prior to procedure the correct patient, procedure, and site was verified Verbal consent obtained?: Yes Supporting Documentation: Indications: Tendon swelling and pain Procedure Details: Condition: de Quervain's Site: R extensor compartment 1 Prep: patient was prepped using a clean technique Needle gauge: 25G. Approach: Radial Medications: 0.5 mL lidocaine 10 mg/mL (1 %); 40 mg methylPREDNISolone acetate 40 mg/mL Patient tolerance: Patient tolerated the procedure well with no immediate complications Injection. After a discussion of the pros, cons, risks, and benefits of a cortisone injection, the patient requested that we proceed. We specifically discussed the risks of skin lightening, subcutaneous fat atrophy, pain upon injection and the possibility of a flare reaction. The patient wished to proceed. A sterile preparation was performed with betadine. The injection was provided with 40 mg of depomedrol in 0.5cc of lidocaine in a pH balanced solution using a 25 gauge needle. The patient tolerated the procedure well. us Uma Alicea MD IN CLINIC/BEDSIDE ORDERA BLES Final Result from Last 3 Months Insurance [employer] CHOICE MEDICARE PPO Care Teams Rn Progressive Care Relationship Specialty Start Date End Date Lucille Camarena NP [address] [place] [address] PCP - General Family Medicine 08/31/24
--- OUTSIDE RECORDS SUMMARY | 2025-02-06 22:37 | XMS_ITS | Referral Summary ---
Author Organization [facility] [address] [facility] Address [address] [place] [address] Care Team Providers Care Principal Architect Name Role Phone Lucille Camarena NP Primary Care Provider Encounters Date Type Department Care Team Description 11/09/2024 8:10 AM CDT - 11/09/2024 11:59 PM CDT Hospital Encounter [facility] [address] [place] [address] Discharge Disposition: Discharge to home or self care 11/09/2024 8:00 AM CDT Office Visit [facility] Orthopaedic Surgery [address] [place] [address] Advanced Medicine 6th [place] [address] [place] [phone] Uma Alicea MD De Quervain's syndrome (tenosynovitis) (Primary Dx); Right wrist pain from Last 3 Months Allergies Active Allergy Reactions Criticality Noted Date [...] 06/19/2018 Overview (11/09/2024): UTI;Recorded Elsewhere: No Location: [facility] Source: EHR Chronic: N Practice ID: [id number] Billable Time: 01:00:00 PM Syphilis contact 11/05/2017 Overview (11/09/2024): Encounter for STD screening;Recorded Elsewhere: No Location: [facility] Source: EHR Chronic: N Practice ID: [id number] Billable Time: 10:30:00 AM Osteoarthritis of cervical spine 09/20/2009 Social History Tobacco Use Types Packs/Day Years Used Date Smoking Tobacco: Never Smokeless Tobacco: Never Tobacco Cessation:Counseling Given: Not Answered Comments Unknown Sex and Gender Information Value Date Recorded Sex Assigned at Not on file 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 Gender Identity Not on file Sexual Orientation Not on file Last Filed Vital Signs Vital Sign Reading Time Taken Comments Blood Pressure - - Pulse - - Temperature - - Respiratory Rate - - Oxygen Saturation - - Inhaled Oxygen Concentration - - Weight 79.4 kg (175 lb) 11/09/2024 7:59 AM CDT Height 160 cm (5' 3) 11/09/2024 7:59 AM CDT Body Mass Index 31 11/09/2024 7:59 AM CDT Plan of Treatment Not on file Procedures Procedure Name Priority Date/Time Associated Diagnosis Comments XR TRANSFER OF OUTSIDE FILMS Routine 11/09/2024 8:10 AM CDT [place] INJECTION 1 TENDON SHEATH/LIGAMENT APONEUROSIS Routine 11/09/2024 8:00 AM CDT De Quervain's syndrome (tenosynovitis) from Last 3 Months Results * XR Outside Reference (11/09/2024 8:10 AM CDT) Impressions [facility] - 11/09/2024 8:10 AM CDT These images are for Reference purposes only and have not been reviewed by [facility] Radiology. There will be no report generated by a [facility] Radiologist. Narrative [facility] - 11/09/2024 8:10 AM CDT EXAMINATION: Images For Reference Purposes Only us Uma Alicea MD IMG XR PROCEDURES Final Result [facility] * PA INJECTION 1 TENDON SHEATH/LIGAMENT APONEUROSIS (11/09/2024 8:00 AM CDT) Narrative Uma Alicea MD - 11/09/2024 8:00 AM CDT Uma Alicea MD 11/09/2024 8:33 AM De Quervain's injection: R extensor compartment 1 Performed by: Uma Ailcea MD Authorized by: Uma Alicea MD De Quervain'delia Injection: Consent Given by: Patient Timeout: prior [...] Insurance [employer] CHOICE MEDICARE PPO Care Teams Principal Architect Relationship Specialty Start Date End Date Lucille Camarena NP [address] [place] [address] PCP - General Family Medicine 08/31/24
--- OUTSIDE RECORDS SUMMARY | 2025-02-06 22:37 | XMS_ITS | Patient Health Record ---
Author Organization [facility] dicine Address [address] [place] [address] Care Team Providers Care Svp Of Digital Name Role Phone Dr. Tiffayn Strickland Primary Care Provider [phone] Camarena Unavailable [phone] Migration, Provider Unavailable Unavailable Allergies Allergen (clinical drug ingredient) Drug/Non Drug Allergy documented on EMR Reaction Allergy Type Onset Date Status amoxicillin / clavulanate Augmentin *Unknown Drug Allergy 01/27/2021 Active Results Component Value Reference Range Notes X ray : Wrist, right Reviewed date:10/04/2024 04:45:45 PM Interpretation: Performing Lab: Notes/Report: MAMMOGRAM, SCREENING Reviewed date:01/25/2025 01:54:43 PM Interpretation:Negative Performing Lab: Notes/Report: Negative MAMMOGRAM, SCREENING Reviewed date:01/25/2025 01:54:43 PM Interpretation:Negative Performing Lab: Notes/Report: Negative Reason For Referral Reason Ongoing right wrist pain, suspect DeQuervain's Tenosynovitis- [facility] 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 Uma Alicea Referral Priority Urgent Referral Appointment Date 11/09/2024 Medications Medication SIG (Take, Route, Frequency, Duration) Notes Start Date End Date Status Gabapentin 400 MG Capsule 1 Oral two kale es a day; Duration: 90 03/27/2024 03/21/2025 Unknown valACYclovir HCl 500 MG Tablet 1 Oral every day; Duration: 90 05/16/2024 05/10/2025 Unknown Alendronate Sodium 70 MG Tablet Oral; Duration: 84 03/27/2024 02/25/2025 Unknown metFORMIN HCl ER 500 MG Tablet Extended Release 24 Hour 1 tablet Orally twice a day; Duration: 90 days Active predniSONE 20 MG Tablet 3 tablets once a day for 2 days, 2 tablets once a day for 2 days, 1 tablet once a day for 2 days, 0.5 tablet once a day for 2 days Orally; Duration: 8 days 08/31/2024 Active traZODone HCl 50 MG Tablet 1-2 tabs at b edtime Oral daily; Duration: 90 days Active Pramipexole Dihydrochloride 1.5 MG Tablet 1 tablet Oral daily; Duration: 90 days 1-2 hours prior to bedtime Active Famotidine 20 MG Tablet 1 tablet Orally daily; Duration: 90 days As needed Unknown Vitamin D3 50 MCG (2000 UT) Tablet 2.5 Oral every day; Duration: 0 08/28/2022 Unknown Venlafaxine HCl ER 75 MG Capsule Extended Release 24 Hour 3 Oral every day; Duration: 90 Active Immunizations Vaccine Route Administration Date Status Comme nts Zoster IM Intramuscular 09/11/2021 Administered ,[facility] [place] : New immunization record ,immstatus : Complete Zoster IM Intramuscular 03/18/2022 Administered ,[facility] [place] : New immunization record ,immstatus : Complete Tdap IM Intramuscular 03/03/2023 Administered ,[facility] [place] : New immunization record ,immstatus : Complete RSV-MAb (Respiratory syncytial virus immune globulin) IM Intramuscular 03/06/2024 Administered ,[facility] : New immunization record ,immstatus : Complete Pneumococcal polysaccharide PPV23 IM Intramuscular 03/03/2023 Administered ,[facility] : N ew immunization record ,immstatus : Complete Pneumococcal conjugate PCV 13 Unknown 08/16/2017 Administered ,[facility]ourcename : Historical information -from other registry Source VFC Code: : Moderna Covid-19 Vaccine 1st dose IM Intramuscular 08/22/2020 Administered Source VFC Code: : Moderna Covid-19 Vaccine 1st dose IM Intramuscular 10/01/2020 Administered Source VFC Code: : Moderna Covid-19 Vaccine 1st dose IM Intramuscular 06/29/2021 Administered Source VFC Code: : Influenza, quadrivalent (IIV4), split virus, 6-35 months dosage IM Intramuscular 05/30/2020 Administered Source VFC Code: : Influenza, quadrivalent (IIV4), split virus, 6-35 months dosage IM Intramuscular 06/25/2022 Administered ,[place]ourc[place] : N ew immunization record ,immstatus : Complete Social History Social History Additional Details Category Social Info Options Details Migrated Social History Migrated Social History Alcohol history:Currently drinks alcohol ,notes : social , Tobacco history:Never smoker , Marital status: Problems Problem Type SNOMED Code ICD Code Onset Dates Problem Status W/U Status Risk Notes Problem Age-related osteoporosis (496010293) Age-related osteoporosis without current pathological fracture (M81.0) 01/29/20 21 Active confirmed Problem Acute bronchitis (91084546) Acute bronchitis (466.0) 06/29/20 16 Problem resolved confirmed Problem Actinic keratosis (520272) Actinic keratosis (L57.0) 11/14/19 16 Problem resolved confirmed Problem Acute cystitis (56094707) Acute cystitis without hematuria (N30.00) 08/16/19 18 Problem resolved confirmed Problem Wedge fracture of thoracic vertebra (592888239) Wedge compression fracture of T11-T12 vertebra, subsequent encounter for fracture with routine healing (S22.080D) 01/29/20 21 Active confirmed Problem Unspecified fracture of T7-T8 vertebra, initial encounter for closed fracture (S22.069A) 06/25/20 22 Active confirmed Problem Osteoarthritis (256939235) Unspecified osteoarthritis, unspecified site (M19.90) 01/29/20 21 Active confirmed Problem Seborrheic keratosis (69211210) Other seborrheic keratosis (L82.1) 09/10/19 24 Active confirmed Problem Gastro-esophageal reflux disease without esophagitis (464718801) Gastro-esophagea l reflux disease without esophagitis (K21.9) 01/29/20 21 Active confirmed Problem Restless legs syndrome (43062551) Restless legs syndrome (G25.81) 03/08/20 24 Active confirmed Problem Insomnia 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 (29400223) Insomnia due to other mental disorder (F51.05) 03/24/20 17 Active confirmed Problem Generalized anxiety disorder (36211433) Generalized anxiety disorder (F41.1) 09/12/19 22 Active confirmed Problem Hyperlipidemia (81101866) Hyperlipidemia, unspecified (E78.5) 02/28/20 23 Active confirmed Problem Vitamin D deficiency (32736552) Vitamin D deficiency, unspecified (E55.9) 01/29/20 21 Active confirmed Problem Vitamin B deficiency (05923159) Deficiency of other specified B group vitamins (E53.8) 01/29/20 21 Active confirmed Problem Leukopenia (43564737) Decreased white blood cell count, unspecified (D72.819) 03/03/20 23 Active confirmed Problem Body mass index 30.00 to 34.99 (529951046484087) Body mass index [BMI] 32.0-32.9, adult (Z68.32) Active confirmed Problem Obesity due to excess calories (243485807) Other obesity due to excess calories (E66.09) Active confirmed Problem Diarrhea (53024384) Diarrhea, unspecified (R19.7) 01/10/20 16 Problem resolved confirmed Problem Nausea (097839023) Nausea (R11.0) 01/10/20 16 Problem resolved confirmed Problem Urinary tract infectious disease (disorder) (06783312) Urinary tract infection, site not specified (N39.0) 11/14/19 16 Problem resolved confirmed Problem Pain in finger (67343679) Pain in unspecified finger(s) (M79.646) 03/06/20 16 Problem resolved confirmed Problem Pain of knee region (finding) (0058175721) Pain in unspecified knee (M25.569) 11/14/19 16 Problem resolved confirmed Problem Joint pain (25607742) Pain in unspecified joint (M25.50) 11/14/19 16 Problem resolved confirmed Problem Effusion (64688460) Effusion, other site (M25.48) 03/06/20 16 Problem resolved confirmed Problem Acute bronchitis (53978907) Acute bronchitis, unspecified (J20.9) 06/29/20 16 Problem resolved confirmed Problem Pneumonia (657371983) Pneumonia, unspecified organism (J18.9) 01/10/20 16 Problem resolved confirmed Problem Acute upper respiratory infection (38537129) Acute upper respiratory infection, unspecified (J06.9) 07/15/19 18 Problem resolved confirmed Problem Acute sinusitis (58282021) Acute sinusitis, unspecified (J01.90) 07/15/19 18 Problem resolved confirmed Problem Acute pansinusitis (2138998) Acute pansinusitis, unspecified (J01.40) 06/29/20 16 Problem resolved confirmed Problem Pneumococcal conjugate vaccination (700855497896740) Need for prophylactic vaccination against streptococcus pneumoniae (pneumococcus) (V03.82) 08/16/19 18 Problem resolved confirmed Problem Diarrhea (16563717) Diarrhea (787.91) 01/10/20 16 Problem resolved confirmed Problem Joint pain (81589310) Pain in joint, other specified sites (719.48) 11/14/19 16 Problem resolved confirmed Problem Osteoarthritis (134105581) Osteoarthrosis, unspecified whether generalized or localized, unspecified site (715.90) 03/06/20 16 Problem resolved confirmed Problem Actinic keratosis (053500) Actinic keratosis (702.0) 11/14/19 16 Problem resolved confirmed Problem Effusion of joint (779461408) Effusion of joint, other specified site (719.08) 03/06/20 16 Problem resolved confirmed Problem Urinary tract infectious disease (disorder) (41348859) Urinary tract infection, site not specified (599.0) 11/14/19 16 Problem resolved confirmed Problem Pneumonia (932780379) Pneumonia, organism unspecified (486) 01/10/20 16 Problem resolved confirmed Problem Acute sinusitis (30253000) Acute sinusitis, unspecified (461.9) 07/15/19 18 Problem resolved confirmed Problem Acute sinusitis (disorder) (93152551) Other acute sinusitis (461.8) 06/29/20 16 Problem resolved confirmed Problem Sleep disorder (88134565) Persistent disorder of initiating or maintaining sleep (307.42) 03/24/20 17 Problem resolved confirmed Problem Dysuria (32453184) Dysuria (788.1) 12/19/19 16 Inactive confirmed Problem Body mass index 25-29 - overweight (331087056) Body mass index (BMI) 28.0-28.9, adult (Z68.28) 03/03/20 23 Active confirmed Problem Prediabetes (614088086) Prediabetes (R73.03) 03/18/20 22 Active confirmed Problem Postmenopausal state (85671518) Asymptomatic menopausal state (Z78.0) 11/10/19 23 Active confirmed Vital Signs Heart Rate 72 /min 08/24/2024 Temperature 97.9 degrees Fahrenheit 08/24/2024 Respiratory Rate 18 /min 08/24/2024 Height-cm 158.75 cm 08/24/2024 Oximetry 95 % 08/24/2024 Blood pressure diastolic 88 mm Hg 08/24/2024 Weight-kg 81.01 kg 08/24/2024 Height 62.50 in 08/24/2024 Blood pressure systolic 132 mm Hg 08/24/2024 Weight 178.6 lbs 08/24/2024 BMI 32.14 kg/m2 08/24/2024 Encounters Encounter Location Date Provider Diagnosis [address] [address] 03/06/2024 Dr. Tiffany Strickland Restless legs syndrome G25.81 ; Asymptomatic menopausal state Z78.0 ; Generalized anxiety disorder F41.1 ; Prediabetes R73.03 ; Encounter for general adult medical examination without abnormal findings Z00.00 and Encounter for immunization Z23 [address] [address] 08/24/2024 Lucille Camarena Prediabetes R73.03 ; Other obesity due to excess calories E66.09 ; Body mass index [BMI] 32.0-32.9, adult Z68.32 ; Obesity, class 1 E66.811 ; Hyperlipidemia, unspecified E78.5 ; Gastro-esophageal reflux disease without esophagitis K21.9 ; Vitamin D deficiency, unspecified E55.9 and Right wrist pain M25.[address] [address] 06/10/2024 Provider Migration [address] [address] 06/11/[address] [address] 08/28/2024 [facility] [address] [address] 08/31/[address] [place] [address] 12/22/2024 Dr. Allen [place] Assessments Encounter Date Diagnosis (ICD Code) Assessment Notes Treatment Notes Treatment Clinical Notes Section Notes 03/06/2024 Generalized anxiety disorder (ICD-10 - F41.1) 03/06/2024 Restless legs syndrome (ICD-10 - G25.81) 03/06/2024 Encounter for general adult medical examination without abnormal findings (ICD-10 - Z00.00) 03/06/2024 Encounter for immunization (ICD-10 - Z23) 03/06/2024 Asymptomatic menopausal state (ICD-10 - Z78.0) 03/06/2024 Prediabetes (ICD-10 - R73.03) 08/24/2024 Prediabetes (ICD-10 - R73.03) -A1C was 6.0 last year, family hx of diabetes. Will recheck labs today 08/24/2024 Other obesity due to excess calories (ICD-10 - E66.09) 08/24/2024 Body mass index [BMI] 32.0-32.9, adult (ICD-10 - Z68.32) 08/24/2024 Obesity, class 1 (ICD-10 - E66.811) - Struggling with weight management and prediabetes. Metformin considered due to insulin resistance.- Prescribe metformin, starting with one tablet daily for the first week, then increasing to two tablets (one in the morning and one in the evening). Blood work to be conducted to monitor diabetes status. Encourage small lifestyle changes for weight management.- Risks and side effects: Potential gastrointestinal side effects from metformin, such as diarrhea. Advised to stop if severe cramping or diarrhea occurs.- Discussed various weight management strategies, including lifestyle changes and potential medication options, considering family history and personal challenges. 08/24/2024 Hyperlipidemia, unspecified (ICD-10 - E78.5) -Will check lipid panel 08/24/2024 Gastro-esophagea l reflux disease without esophagitis (ICD-10 - K21.9) -GERD controleld with meds 08/24/2024 Vitamin D deficiency, unspecified (ICD-10 - E55.9) - Will recheck Vit D 08/24/2024 Right wrist pain (ICD-10 - M25.531) - Likely De Quervain's tenosynovitis due to inflammation affecting thumb movements and wrist pain.- Referral to a hand specialist for further evaluation and potential cortisone injection. Order for a wrist X-ray to assess bone structure.- Consideration of a specific brace that locks the joint to alleviate symptoms. Plan Of Treatment Next Appt Details Provider Name:Dr. Tiffany morejon, 02/19/2025 10:00:00 AM, [address] [place], [address], [phone] Insurance Providers Payer Name Payer Address Payer Phone Subscriber Number Group Number Insured Name Patient Relationship to Insured Coverage Start Date Coverage End Date [employer] [address] [address] [place] [address] [id number] Caryl Holguin Self - patient is the insured Medical (General) History Surgical History Surgery Date(Month/Year) kyphoplasty ,notes : x 2 Vertebrae fusion ,notes : L4-L5; Dr. Bharath anders 09/1996 shoulder surgery ,notes : Right; Dr. Michael eckert and Left 2015 Finger surgery 07/10/2010
--- OUTSIDE RECORDS SUMMARY | 2025-02-06 22:37 | XMS_ITS | Data Portability ---
Author Organization [facility] Address [address] [place] [address] [place] [address] Assessment Encounter Date Assessment Date Assessment LastModified by Organization Details LastModified Time 04/29/2020 04/29/2020 Annual gynecological exam performed. Patient will come back in a year unless there are new symptoms. Not available 04/29/2020 14:43:39 Plan of Treatment Reminders Order Date Submit Date Provider Last Modified By Organization Details Last Modified Time Details Appointments None recorded. Lab None recorded. Referral None recorded. Procedures None recorded. Surgeries None recorded. Imaging DEXA, axial skeleton + vertebral fracture assessment 2019 [facility], [address] [address], [place], [address], 1 16:58:06 Medication Orders Valtrex 500 mg tablet 2019 [id number], [address] [place], [address], 0 16:51:08 Valtrex 500 mg tablet 2019 [id number], [address] [place], [address], 0 16:52:02 Effexor XR 75 mg capsule,ex tended release 2019 [id number], [address] [place], [address], 0 16:52:55 Patient TargetsNo targets recorded. Patient Instructions Encounter Date Encounter Id Patient Instructions Last Modified By Organization Details Last Modified Time 04/29/2020 [id number] [email or web address] Not available 16:50:00 Reason for Referral None Reported. Results Created Date Observation Date Name Description Value Unit Range Abnormal Flag Note LastModifiedBy Organization Detail LastModifiedTime 08/30/19 21 08/30/2020 MAMMO , scree celestino, bilat eral No observ ation record ed. [facility] [address], [place], [address], 09/05/2020 10:31:17 09/05/19 21 DEXA, axial skele ton + verte bral fract ure asses sment No observ ation record ed. aruehrup [facility] [address], [place], [address], 09/26/2020 13:19:50 Result Notes None recorded. Problems Name Problem SNOMED Code Status Onset Date Resolution Date Notes Provider Name and Address Organization Details Recorded Time Specializ ed medical examinati on Active 2010 Gynecologi rene Examinatio n;Recorded Elsewhere: No Locatio n: [facility] rce: EHR Chroni c: N Practice ID: 0001 Billa ble Time: 09:30:00 AM Not Available [facility] 0 17:29:30 Adult health examinati on Active 2013 ROUTINE MEDICAL EXAM;Recor ded Elsewhere: No Locatio n: [facility] rce: EHR Chroni c: N Practice ID: 0001 Billa ble Time: 01:00:00 PM Not Available [facility] 0 17:29:31 Screening for malignant neoplasm of rectum Active 2016 Encounter for screening for malignant neoplasm of rectum;Rec orded Elsewhere: No Locatio n: [facility] rce: EHR Chroni c: N Practice ID: 0001 Billa ble Time: 10:30:00 AM Not Available [facility] 0 17:29:[address] Concept Active 2016 Encntr for general adult medical exam w/o abnormal findings;R ecorded Elsewhere: No Locatio n: [facility] rce: EHR Chroni c: N Practice ID: 0001 Billa ble Time: 10:30:00 AM Not Available [facility] 0 17:29:30 Screening for malignant neoplasm of cervix Active 2016 Encounter for screening for malignant neoplasm of cervix;Rec orded Elsewhere: No Locatio n: [facility] rce: EHR Chroni c: N Practice ID: 0001 Billa ble Time: 10:30:00 AM Not Available [facility] 0 17:29:30 Syphilis test finding 397577109 Active 2017 Encounter for STD screening; Recorded Elsewhere: No Locatio n: [facility] rce: EHR Chroni c: N Practice ID: 0001 Billa ble Time: 10:30:00 AM Not Available [facility] 0 17:29:30 Evaluatio n finding Active 2017 Hematuria, unspecifie d;Recorded Elsewhere: No Locatio n: [facility] rce: EHR Chroni c: N Practice ID: 0001 Billa ble Time: 10:30:00 AM Not Available [facility] 0 17:29:[address] Concept Active 2017 Well woman check w/o abnormal finding;Re corded Elsewhere: No Locatio n: [facility] rce: EHR Chroni c: N Practice ID: 0001 Billa ble Time: 01:00:00 PM Not Available [facility] 0 17:29:30 Urinary tract infectiou s disease 97459419 Active 2017 UTI;Record ed Elsewhere: No Locatio n: [facility] rce: EHR Chroni c: N Practice ID: 0001 Billa ble Time: 01:00:00 PM Not Available [facility] 0 17:29:30 Emotional state finding Active 2018 Anxiety depression ;Recorded Elsewhere: No Locatio n: [facility] rce: EHR Chroni c: N Practice ID: 0001 Billa ble Time: 02:30:00 PM Not Available [facility] 0 17:29:31 Problem Notes None recorded. Procedures Surgical History Date Name Laterality Status Provider Name and Address Organization Details Recorded Time procedure on shoulder completed [facility] 04/29/2020 14:30:21 procedure on finger completed [facility] 04/29/2020 14:30:45 Arthrd ant ntrbd min dsc lum completed [facility] 04/29/2020 14:30:57 procedure on back completed [facility] 04/29/2020 14:31:04 Colonoscopy completed [facility] 04/29/2020 14:31:09 Imaging Results None recorded. Procedure Notes None recorded. Medical Equipment None Reported. Allergies Allergen ID Allergen Name Allergen Category Reaction Reaction Severity Criticality Documentation Date Start Date Code Code System Note Provider Name and Address Organization Details Recorded Time 2436 amoxicill in medicatio n Not available Not available Not available 04/29/2020 723 RxNorm [facility] 0 14:28:04 2437 potassium medicatio n Not available Not available Not available 04/29/2020 8588 RxNorm [facility] 0 14:28:10 Medications Name Sig Start Date Stop Date Status Note LastModified by Organization Details LastModified Time venlafaxi ne ER 75 mg capsule,e xtended release 24 hr TAKE 1 CAPSULE BY MOUTH THREE TIMES A DAY active Not Available Not Available No t Available trazodone 50 mg tablet active Not Available Not Available Not Available clonazepa m 0.5 mg tablet active Not Available Not Available Not Available gabapenti n 400 mg capsule active Not Available Not Available Not Available Zoloft 20 mg/mL oral concentra te take 2.5 millilit er by oral route every day and mix with 4 oz. (1/2 cup) of water, mary dany, lemon/li me soda, lemonade or orange juice ONLY 04/09 completed Prescrib ed Elsewher e: Yes Loca [facility]ion: [facility] By: haresh neff Enczander nter DateTime : 04/05/20 11 06:06:24 PM Not Available Not Available Not Available atenolol 25 mg tablet take 1 tablet by oral route every day 06/26 completed Prescrib ed Elsewher e: Yes Loca tion: [facility] By: juan carlos sepulveda DateTime : 04/09/20 11 09:30:00 AM Not Available Not Available Not Available valacyclo vir 500 mg tablet TAKE 1 TABLET BY MOUTH EVERY DAY 2020 active Not Available Not Available Not Avai lable Mirapex 0.25 mg tablet take 1 tablet (0.25MG) by oral route 3 times every day 05/03 completed Prescrib ed Elsewher e: No Locat ion: [facility] By: juan carlos sepulveda DateTime : 04/09/20 11 09:30:00 AM Not Available Not Available Not Available pantopraz ole 40 mg tablet,de layed release active Not Available Not Available Not Available Valtrex 1 gram tablet take 1 tablet by oral route every 12 hours 04/09 completed Prescrib ed Elsewher e: Yes Loca tion: [facility] By: haresh Vera nter DateTime : 04/05/20 11 06:06:24 PM Not Available Not Available Not Available gabapenti n 100 mg capsule take 3 capsule by oral route 3 times every day active Prescrib ed Elsewher e: Yes [facility] By: juan carlos sepulveda DateTime : 06/28/20 14 01:00:00 PM Not Available Not Available Not Available Vitamin D2 1,250 mcg (50,000 unit) capsule take 1 capsule (78138EU ITS) by oral route every week 06/26 completed Prescrib ed Elsewher e: No Locat ion: [facility] By: juan carlos sepulveda DateTime : 04/14/20 11 03:18:44 PM Not Available Not Available Not Available pramipexo le 1.5 mg tablet 04/29 completed Not Available Not Available Not Available Bactrim DS 800 mg-160 mg tablet take 1 tablet by oral route every 12 hours 02/28 completed Prescrib ed Elsewher e: No Locat ion: [facility] By: jose antonio morel DateTime : 06/20/20 18 01:00:00 PM Not Available Not Available Not Available Cymbalta 60 mg capsule,d elayed release take 1 capsule (60MG) by oral route every day 06/26 completed Prescrib ed Elsewher e: No Locat ion: [facility] By: juan carlos sepulveda DateTime : 04/09/20 11 09:30:00 AM Not Available Not Available Not Available Mirapex active Not Available Not Avail able Not Available Valtrex active Not Available Not Avail able Not Available gabapenti n active Not Available Not Available Not Available Mirapex 0.75 mg tablet take 1 tablet (0.75MG) by oral route 3 times every day active Prescrib ed Elsewher e: Yes Loca tion: [facility] By: juan carlos sepulveda DateTime : 05/03/20 12 08:30:00 AM Not Available Not Available Not Available Madden 500 mg magnesium tablet take 1 tablet by oral route every day active Prescrib ed Elsewher e: Yes Loca tion: [facility] By: sylvia aleman DateTime : 04/09/20 11 09:30:00 AM Not Available Not Available Not Available Madden 04/29 completed Not Available Not Available Not Available Atelvia 35 mg tablet,de layed release take 1 tablet (35MG) by oral route every week in the morning immediat radha followin g breakfas t with at least 4 oz of plain water 06/26 completed Prescrib ed Elsewher e: No Locat ion: [facility] By: juan carlos sepulveda DateTime : 05/03/20 12 08:30:00 AM Not Available Not Available Not Available Vitals Date Recorded Body height Body mass index (BMI) Body weight Systolic And Diastolic Provider Name and Address Organization Details Last Updated DateTime 04/29/2020 162.56 cm 28.2 kg/m2 35557.15 g 114/74 mm[Hg] Altagracia Ferro [facility] 04/29/2020 14:53:10 Social History None recorded. Functional Status None recorded. Mental Status None recorded. Family History Relationship Description Onset Age of this Age Resolved Age Notes LastModified by Organization Details LastModified Time Father Hypertensive disorder [email or web address] Not available 2019 14:28:56 Father Carcinoma of urinary bladder, superficial [email or web address] Not available 04/11 14:29:14 Father Diabetes mellitus [email or web address] Not available 2019 14:29:25 Mother Osteoporosis Not availa ble 04/29/2020 14:29:36 Mother Family history of restless legs syndrome [email or web address] Not available 2019 14:29:52 Notes:Father: Cancer, bladde r, Diabetes mellitus, Cancer, bladder, Hypertension Mother: Restless leg syndrome, Osteoporosis Medical History Condition Response History of abnormal pap Y Gynecological HistoryNo gynecological history recorded. Obstetrics History GPAL:G 0 P 0 0 0 0 Past Encounters Encounter ID Performer Location Encounter Start Date Encounter Closed Date Diagnosis/Indication Diagnosis SNOMED-CT Code Diagnosis ICD10 Code Diagnosis Note [id number] Bhavna Schmitt , [facility] [address] [address] 04/29/2020 14:41:32 04/29/2020 17:33:32 Gynecologic examination 95801046 Z01.419 Take Calcium with Vitamin D 12-1500mg daily. Do monthly self breast exams. It is advised to get annual flu shot in the fall and she could obtain at [facility] or [facility] care clinic. If you haven't received the Tdap vaccine in the last 10 years you should obtain one as well. Have mammogram yearly, bone density every 2-3 years and colonoscop y every 5-10 years depending on findings and history. Engage in daily exercise of low impact aerobic exercise 45-60 minutes 4-5 times weekly. Avoid tobacco and illicit drugs as well as using moderation with alcohol intake less than 1-2 8 oz beverages daily. This lifestyle behavior pattern will lead to less health conditions and longer life span. If BMI greater than 25 weight watchers or dietary consult advised. Questions have been answered. Patient appears to understand instructio ns, but if you have any further questions call or respond to this email Opts to defer pap this year due to norm hx, age, & current monogamous relationsh ip. Mammo ordered Colonoscop y UTD Dexa ordered Declines std screening Postmenopa usal osteopenia 443206660 Z78.0 Screening for malignant neoplasm of colon 831362155 Z12.11 Genital he rpes simplex 84202009 A60.9 Doing well on suppressiv e therapy but will occasional ly have a tiny outbreak during times of extreme stress which has been lately during court sessions over land with her neighbor. We agreed to continue daily & send prn BID 3 day Valtrex if needed. If this continues to happen frequently we night consider using acyclovir instead. She agrees. Will call if issues. Generalize d anxiety disorder 79451661 F41.1 Doing well on effexor. Wishes to continue. Health Concerns Section Related Observation LastModified by Organization Detai ls LastModified Time None Recorded Concern Status LastModified by Organization Details LastModified Time None Recorded Advance Directives Directive None Recorded Payers Insurance Date Sequence Insurance Name Policy Number Policy Higuera Covered Member ID Higuera Member ID Guarantor Name 05/15/2021 2 [employer] (MEDICARE SUPPLEMENT) Caryl Holguin [id number] 05/15/2021 [place] Caryl Holguin [id number] 05/15/2021 1 [place] Caryl Holguin [id number] OBGyn Episode No OBEpisode recorded.
--- OUTSIDE RECORDS SUMMARY | 2025-02-06 22:37 | XMS_ITS | Clinical Summary ---
Author Organization [facility] Address [facility] [place] [address] Care Team Providers Care Ms Sql Developer Name Role Phone Unavailable Primary Care Provider Unavailabl e Social History Tobacco Use Types Packs/Day Years Used Date Smoking Tobacco: Never Assessed Comments Unknown Sex and Gender Information Value Date Recorded Sex Assigned at Not on file Legal Sex Female 8:34 PM CDT Gender Identity Not on file Sexual Orientation Not on file Last Filed Vital Signs Vital Sign Reading Time Taken Comments Blood Pressure 94/60 05/01/2015 10:36 AM CDT Pulse 80 05/01/2015 10:36 AM CDT Temperature - - Respiratory Rate - - Oxygen Saturation - - Inhaled Oxygen Concentration - - Weight 72.6 kg (160 lb) 05/01/2015 10:36 AM CDT Height 162.6 cm (5' 4) 05/01/2015 10:36 AM CDT Body Mass Index 27.46 05/01/2015 10:36 AM CDT Plan of Treatment Health Maintenance Due Date Last Done Comments Colorectal Cancer Screening Colonoscopy (10 Years) 1951 Hepatitis C 1969 DTaP, Tdap and Td Vaccines ( 1 - Tdap) 1970 Mammogram Screening 1991 Pneumococcal Vaccine: 50+ Ye ars (1 of 1 - PCV) 2001 Zoster Vaccines (1 of 2) 2001 Dexa Scan (General) 2016 COVID-19 Vaccine ( - 2023-2 5 season) 2024 RSV Immunization or 60+ Years (1 - 1-dose 75+ series) 2026 Meningococcal B Vaccine Aged Out No l onger eligible based on patient's age to complete this topic Meningococcal Vaccine Aged Out No magali arcadio eligible based on patient's age to complete this topic RSV Immunizations Under 20 Months Aged Out No longer eligible based on patient's age to complete this topic
[2025-02-06 22:39] VITALS: BP 142/83; PULSE 79; RESP 18; TEMP 36.9; O2SAT 95
--- OUTSIDE RECORDS SUMMARY | 2025-02-07 00:02 | XMS_ITS | Referral Summary ---
Author Organization [facility] [address] [facility] Address [address] [place] [address] Care Team Providers Care Steel Pan Form Placing Supervisor Name Role Phone Lucille Camarena NP Primary Care Provider Encounters Date Type Department Care Team Description 11/09/2024 8:10 AM CDT - 11/09/2024 11:59 PM CDT Hospital Encounter [facility] [address] [place] [id number] Discharge Disposition: Discharge to home or self care 11/09/2024 8:00 AM CDT Office Visit [facility] [address] [place] [address] Advanced Medicine [address] [place] [address] [place] [id number] Uma Alicea MD De Quervain's syndrome (tenosynovitis) [...] 06/19/2018 Overview (11/09/2024): UTI;Recorded Elsewhere: No Location: [facility] Source: EHR Chronic: N Practice ID: [id number] Billable Time: 01:00:00 PM Syphilis contact 11/05/2017 Overview (11/09/2024): Encounter for STD screening;Recorded Elsewhere: No Location: [facility] Source: EHR Chronic: N Practice ID: [id number] Billable Time: 10:30:00 AM Osteoarthritis of cervical spine 09/20/2009 Social History Tobacco Use Types Packs/Day Years Used Date Smoking Tobacco: Never Smokeless Tobacco: Never Tobacco Cessation:Counseling Given: Not Answered Comments Unknown Sex and Gender Information Value Date Recorded Sex Assigned at Not on file 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 There will be no report generated by a [facility] Radiologist. Narrative [id number] - 11/09/2024 8:10 AM [...] Insurance [employer] MEDICARE PPO Care Teams Steel Pan Form Placing Supervisor Relationship Specialty Start Date End Date Lucille Camarena NP [address] [place] [address] PCP - General Family Medicine 08/31/24
--- OUTSIDE RECORDS SUMMARY | 2025-02-07 00:02 | XMS_ITS | Clinical Summary ---
Author Organization [facility] Address [facility] [place] [address] Care Team Providers Care Legal Department Manager Name Role Phone Unavailable Primary Care Provider [...]
--- OUTSIDE RECORDS SUMMARY | 2025-02-07 00:02 | XMS_ITS | Patient Health Record ---
Author Organization [facility] dicine Address [address] [place] [address] Care Team Providers Care Bush And Vine Farmer Fruit Crops Name Role Phone Dr. 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 [...] Vaccine Route Administration Date Status Comme nts Influenza, quadrivalent (IIV4), split virus, 6-35 months dosage IM Intramuscular 05/30/2020 Administered Source VFC Code: : Influenza, quadrivalent (IIV4), split virus, 6-35 months dosage IM Intramuscular 06/25/2022 Administered ,sourcename : N ew immunization record ,immstatus : Complete Moderna Covid-19 Vaccine 1st dose IM Intramuscular 08/22/2020 Administered Source VFC Code: : Moderna Covid-19 Vaccine 1st dose IM Intramuscular 10/01/2020 Administered Source VFC Code: : Moderna Covid-19 Vaccine 1st dose IM Intramuscular 06/29/2021 Administered Source VFC Code: : Pneumococcal conjugate PCV 13 Unknown 08/16/2017 Administered ,sourcename : Historical information -from other registry Source VFC Code: : Pneumococcal polysaccharide PPV23 IM Intramuscular 03/03/2023 Administered ,sourcename : N ew immunization record ,immstatus : Complete RSV-MAb (Respiratory syncytial virus immune globulin) IM Intramuscular 03/06/2024 Administered ,sourcename : New immunization record ,immstatus : Complete Tdap IM Intramuscular 03/03/2023 Administered ,sourc ename : New immunization record ,immstatus : Complete Zoster IM Intramuscular 09/11/2021 Administered ,sourc ename : New immunization record ,immstatus : Complete Zoster IM Intramuscular 03/18/2022 Administered ,sourc ename : New immunization record ,immstatus : Complete Social History Social History Additional Details Category Social Info Options Details Migrated Social History Migrated Social History Alcohol history:Currently drinks alcohol ,notes : social , Tobacco history:Never smoker , Marital status: Problems Problem Type SNOMED Code ICD Code Onset Dates Problem Status W/U Status Risk Notes Problem Obesity due to excess calories (283164932) Other obesity due to excess calories (E66.09) Active confirmed Problem Body mass index 30.00 to 34.99 (030364036355962) Body mass index [BMI] 32.0-32.9, adult (Z68.32) Active confirmed Problem Leukopenia (69920548) Decreased white blood cell count, unspecified (D72.819) 03/03/20 23 Active confirmed Problem Vitamin B deficiency (58752753) Deficiency of other specified B group vitamins (E53.8) 01/29/20 21 Active confirmed Problem Vitamin D deficiency (82835393) Vitamin D deficiency, unspecified (E55.9) 01/29/20 21 Active confirmed Problem Hyperlipidemia (71952211) Hyperlipidemia, unspecified (E78.5) 02/28/20 23 Active confirmed Problem Generalized anxiety disorder (00348500) Generalized anxiety disorder (F41.1) 09/12/19 22 Active confirmed Problem Insomnia 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 (02458430) Insomnia due to other mental disorder (F51.05) 03/24/20 17 Active confirmed Problem Restless legs syndrome (38010887) Restless legs syndrome (G25.81) 03/08/20 24 Active confirmed Problem Gastro-esophageal reflux disease without esophagitis (385157955) Gastro-esophagea l reflux disease without esophagitis (K21.9) 01/29/20 21 Active confirmed Problem Seborrheic keratosis (26363418) Other seborrheic keratosis (L82.1) 09/10/19 24 Active confirmed Problem Osteoarthritis (221273152) Unspecified osteoarthritis, unspecified site (M19.90) 01/29/20 21 Active confirmed Problem Age-related osteoporosis (037602967) Age-related osteoporosis without current pathological fracture (M81.0) 01/29/20 21 Active confirmed Problem Unspecified fracture of T7-T8 vertebra, initial encounter for closed fracture (S22.069A) 06/25/20 22 Active confirmed Problem Wedge fracture of thoracic vertebra (315758248) Wedge compression fracture of T11-T12 vertebra, subsequent encounter for fracture with routine healing (S22.080D) 01/29/20 21 Active confirmed Problem Postmenopausal state (20127372) Asymptomatic menopausal state (Z78.0) 11/10/19 23 Active confirmed Problem Prediabetes (354924009) Prediabetes (R73.03) 03/18/20 22 Active confirmed Problem Body mass index 25-29 - overweight (896103974) Body mass index (BMI) 28.0-28.9, adult (Z68.28) 03/03/20 23 Active confirmed Problem Dysuria (37079101) Dysuria (788.1) 12/19/19 16 Inactive confirmed Problem Sleep disorder (93594403) Persistent disorder of initiating or maintaining sleep (307.42) 03/24/20 17 Problem resolved confirmed Problem Acute sinusitis (disorder) (95040966) Other acute sinusitis (461.8) 06/29/20 16 Problem resolved confirmed Problem Acute sinusitis (06532437) Acute sinusitis, unspecified (461.9) 07/15/19 18 Problem resolved confirmed Problem Acute bronchitis (31492297) Acute bronchitis (466.0) 06/29/20 16 Problem resolved confirmed Problem Pneumonia (825289301) Pneumonia, organism unspecified (486) 01/10/20 16 Problem resolved confirmed Problem Urinary tract infectious disease (disorder) (91497254) Urinary tract infection, site not specified (599.0) 11/14/19 16 Problem resolved confirmed Problem Effusion of joint (139412725) Effusion of joint, other specified site (719.08) 03/06/20 16 Problem resolved confirmed Problem Actinic keratosis (218515) Actinic keratosis (702.0) 11/14/19 16 Problem resolved confirmed Problem Osteoarthritis (094015585) Osteoarthrosis, unspecified whether generalized or localized, unspecified site (715.90) 03/06/20 16 Problem resolved confirmed Problem Joint pain (41593218) Pain in joint, other specified sites (719.48) 11/14/19 16 Problem resolved confirmed Problem Diarrhea (40016120) Diarrhea (787.91) 01/10/20 16 Problem resolved confirmed Problem Pneumococcal conjugate vaccination (502793174070303) Need for prophylactic vaccination against streptococcus pneumoniae (pneumococcus) (V03.82) 08/16/19 18 Problem resolved confirmed Problem Acute pansinusitis (3317049) Acute pansinusitis, unspecified (J01.40) 06/29/20 16 Problem resolved confirmed Problem Acute sinusitis (10337332) Acute sinusitis, unspecified (J01.90) 07/15/19 18 Problem resolved confirmed Problem Acute upper respiratory infection (88327230) Acute upper respiratory infection, unspecified (J06.9) 07/15/19 18 Problem resolved confirmed Problem Pneumonia (791494343) Pneumonia, unspecified organism (J18.9) 01/10/20 16 Problem resolved confirmed Problem Acute bronchitis (00820720) Acute bronchitis, unspecified (J20.9) 06/29/20 16 Problem resolved confirmed Problem Actinic keratosis (117683) Actinic keratosis (L57.0) 11/14/19 16 Problem resolved confirmed Problem Effusion (00712202) Effusion, other site (M25.48) 03/06/20 16 Problem resolved confirmed Problem Joint pain (25341070) Pain in unspecified joint (M25.50) 11/14/19 16 Problem resolved confirmed Problem Pain of knee region (finding) (7892402997) Pain in unspecified knee (M25.569) 11/14/19 16 Problem resolved confirmed Problem Pain in finger (13726835) Pain in unspecified finger(s) (M79.646) 03/06/20 16 Problem resolved confirmed Problem Acute cystitis (34960949) Acute cystitis without hematuria (N30.00) 08/16/19 18 Problem resolved confirmed Problem Urinary tract infectious disease (disorder) (72439403) Urinary tract infection, site not specified (N39.0) 11/14/19 16 Problem resolved confirmed Problem Nausea (586185751) Nausea (R11.0) 01/10/20 16 Problem resolved confirmed Problem Diarrhea (28246420) Diarrhea, unspecified (R19.7) 01/10/20 16 Problem resolved confirmed Vital Signs Heart Rate 72 /min 08/24/2024 Temperature 97.9 degrees Fahrenheit 08/24/2024 Respiratory Rate 18 /min 08/24/2024 Height-cm 158.75 cm 08/24/2024 Oximetry 95 % 08/24/2024 Blood pressure diastolic 88 mm Hg 08/24/2024 Weight-kg 81.01 kg 08/24/2024 Height 62.50 in 08/24/2024 Blood pressure systolic 132 mm Hg 08/24/2024 Weight 178.6 lbs 08/24/2024 BMI 32.14 kg/m2 08/24/2024 Encounters Encounter Location Date Provider Diagnosis [address] [address] 03/06/2024 Dr. Tiffany Strickland Restless legs syndrome G25.81 ; Asymptomatic menopausal state Z78.0 ; Generalized anxiety disorder F41.1 ; Prediabetes R73.03 ; Encounter for general adult medical examination without abnormal findings Z00.00 and Encounter for immunization Z23 [address] [address] 08/24/2024 Lucille Camarena Prediabetes R73.03 ; Other obesity due to excess calories E66.09 ; Body mass index [BMI] 32.0-32.9, adult Z68.32 ; Obesity, class 1 E66.811 ; Hyperlipidemia, unspecified E78.5 ; Gastro-esophageal reflux disease without esophagitis K21.9 ; Vitamin D deficiency, unspecified E55.9 and Right wrist pain M25.[address] [address] 06/10/2024 Provider Migration [address] [address] 06/11/2024 Provider Markus [address] [address] 08[facility]28[facility] [address] [address] 08/31/[address] [place] [address] 12/22/2024 Dr. Allen [place] Assessments Encounter Date Diagnosis (ICD Code) Assessment [...] Tiffany morejon, 02/19/2025 10:00:00 AM, [address] [place], [address], [phone] Insurance Providers Payer Name Payer Address Payer Phone Subscriber Number Group Number Insured Name Patient Relationship to Insured Coverage Start Date Coverage End Date [employer]age [address] [address] [place] [address] [id number] Caryl Holguin Self - patient is the insured Medical (General) History Surgical History Surgery Date(Month/Year) kyphoplasty ,notes : x 2 Vertebrae fusion ,notes : L4-L5; Dr. Bharath anders 09/1996 shoulder surgery ,notes : Right; Dr. Michael eckert and Left 2015 Finger surgery 07/10/2010
--- OUTSIDE RECORDS SUMMARY | 2025-02-07 00:02 | XMS_ITS ---
Author Organization [facility] Address [address] [place] [address] Care Team Providers Care Unified Communications Architect Name Role Phone Dr. Tiffany Strickland Primary Care Provider [phone] Migration, Provider Unavailable Unavailable Allergies Allergen (clinical [...] social Encounters Encounter Location Date Provider Diagnosis [facility] [address] [place] [address] 06/11/2024 Provider Migration Plan Of Treatment Next Appt Details Provider Name:Dr. Tiffany morejon, 02/19/2025 10:00:00 AM, [address] [facility], [place], [address], [phone] Progress Notes * Caryl CARBAJALDOB: [birth year] (74 yo F)Acc No.[id number]:06/11/2024 Patient: Caryl JAIME :1950 A ge:73 Y S ex:Female Phone: Address:[address] [place], [place] [address], [place], [address] Subjective: * Chief Complaints: * E MR-Mason [...]
--- OUTSIDE RECORDS SUMMARY | 2025-02-07 00:02 | XMS_ITS | Clinical Summary ---
Author Organization [facility] [address] [facility] Address [address] [place] [address] Care Team Providers Care Group Reservations Coordinator Name Role Phone Lucille Camarena NP Primary [...] 06/19/2018 Overview (11/09/2024): UTI;Recorded Elsewhere: No Location: [facility] Source: EHR Chronic: N Practice ID: [id number] Billable Time: 01:00:00 PM Syphilis contact 11/05/2017 Overview (11/09/2024): Encounter for STD screening;Recorded Elsewhere: No Location: [facility] Source: EHR Chronic: N Practice ID: [id number] Billable Time: 10:30:00 AM Osteoarthritis of cervical spine 09/20/2009 Encounters Date Type Department Care Team Description 11/09/2024 8:10 AM CDT - 11/09/2024 11:59 PM CDT Hospital Encounter [facility] [address] [place] [address] Discharge Disposition: Discharge to home or self care 11/09/2024 8:00 AM CDT Office Visit [facility] Orthopaedic Surgery [address] [place] [address] Advanced Medicine [address] [place] [address] [place] [address] Uam Alicea MD De Quervain's syndrome (tenosynovitis) (Primary Dx); Right wrist pain from Last 3 Months Social History Tobacco Use Types Packs/Day Years Used Date Smoking Tobacco: Never Smokeless Tobacco: Never Tobacco Cessation:Counseling Given: Not Answered Comments Unknown Sex and Gender Information Value Date Recorded Sex Assigned at Not on file Legal Sex Female 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 There will be no report generated by a [facility] Radiologist. Narrative [facility] - 11/09/2024 8:10 AM CDT EXAMINATION: Images For Reference Purposes Only us Uma Alicea MD IMG XR PROCEDURES Final Result [facility] * UT INJECTION 1 TENDON SHEATH/LIGAMENT APONEUROSIS (11/09/2024 8:00 [...] Insurance [employer] CHOICE MEDICARE PPO Care Teams Group Reservations Coordinator Relationship Specialty Start Date End Date Lucille Camarena NP [address] [place] [address] PCP - General Family Medicine 08/31/24
[2025-02-07] MEDS: FAMOTIDINE 20 MG TABLET PO (00:20)
[2025-02-07] MEDS: HYDROcodone/acetaminophen (*CRX) 5-325 MG TABLET 1 TAB PO (00:20)
[2025-02-07] MEDS: ENOXAPARIN 100 MG/ML SYRINGE 85 MG SUB-Q (00:26)
--- NOTE | 2025-02-07 00:32 | PC.NURSE ---
phlebotomy at bedside to attempt to collect blood cultures
--- NOTE | 2025-02-07 00:52 | ED_ITS ---
HPI - General Adult General Chief complaint: Extremity Injury, Lower Stated complaint: right leg pain Time Seen by Provider: 02/06/25 23:00 History of Present Illness HPI narrative: This is a 74-year-old female history of chronic pain presenting with right leg pain. She says she has been having pain in right knee in the distal thigh and proximal calf for the last 3 weeks. Has gotten acutely worse over last several days. She has had some localized swelling. It is worse with movement and made it difficult to walk and drive. She has had this in the past and says is treated with an injection by her pain specialist which resolved for several years. She has not seen her pain specialist yet but she has appointment. She takes Advil at home for pain. No trauma, no fevers, patient is able to bear weight. Related Data Home Medications ?Medication ?Instructions ?Recorded ?Confirmed ?Last Taken ?Type trazodone 50 mg tablet 25 mg PO DAILY 08/31/19 07/18/21 Unknown History venlafaxine 150 mg 225 mg PO DAILY 08/31/19 07/18/21 Unknown History capsule,extended release 24 hr (Effexor XR) gabapentin 400 mg capsule 400 mg PO BID 11/29/19 07/31/21 07/30/21 History Allergies Allergy/AdvReac Type Severity Reaction Status Date / Time clavulanic acid Allergy Mild HIVES Verified 02/06/25 22:36 Penicillins Allergy Mild HIVES Verified 02/06/25 22:36 amoxicillin Allergy Unknown hives Verified 02/06/25 22:36 BETALACTAMASEIN Allergy Mild HIVES Uncoded 02/06/25 22:36 PMFSH Past Medical History Medical History Dislocation of L4/L5 lumbar vertebra, initial encounter SUSANNAH (obstructive sleep apnea) Screening for breast cancer Surgical History Surgical History History of shoulder surgery Family History Family History Father Family history of malignant neoplasm of urinary bladder Social History Social History Smoking status: Never smoker Alcohol intake: current Alcohol use details: Socially Substance use: never Living arrangements: alone Occupation/Education: occupation Additional occupation/education comments: [employer] Gender identity (if verbalized by the patient): Female Sexual Orientation (if Verbalized by the Patient): Straight or Heterosexual Spiritual care concerns: No Exam Narrative: APPEARANCE: No apparent distress. Head: atraumatic. EYES: EOMI, NOSE: Atraumatic NECK: Trachea midline RESPIRATORY: No increased rate of breathing CARDIOVASCULAR: RRR, +2 pulses all extremities ABDOMINAL: Non-distended MUSCULOSKELETAL: Focal exam of the right knee reveals some localized swelling over the medial thigh and proximal calf. No erythema. Tender to palpation. No overlying skin changes. Foot is neurovascularly intact. Flexion extension is intact in the. NEURO: Alert. Moving 4/4 extremities SKIN:: Warm, dry. Normal color PSYCHIATRIC: Normal affect Course Vital Signs Vital signs: Vital Signs Temperature 98.5 F 02/06/25 22:39 Pulse Rate 79 02/06/25 22:39 Respiratory Rate 18 02/06/25 22:39 Blood Pressure 142/83 H 02/06/25 22:39 Pulse Oximetry 95 02/06/25 22:39 Oxygen Delivery Room Air 02/06/25 22:39 Temperature 98.5 F 02/06/25 22:39 Pulse Rate 79 02/06/25 22:39 Respiratory Rate 18 02/06/25 22:39 Blood Pressure 142/83 H 02/06/25 22:39 Pulse Oximetry 95 02/06/25 22:39 Oxygen Delivery Room Air 02/06/25 22:39 Medical Decision Making [facility] Narrative Medical decision making narrative: -Course: 74-year-old female presenting right leg pain. X-rays negative for fracture. No fevers, erythema or warmth to the joint. No significant pain on e xtension/flexion. Septic joint unlikely. poiint of care 3 point compression DVT ultrasound did not reveal any large blood clots. However given her swelling we will give her dose of Lovenox and she containing official scan in the a.m.. Pain was treated with [place] and she requested a Pepcid for her GERD which was provided. Patient will be discharged to get a DVT scan the morning and can follow-up with her primary care physician and lead painter as needed. -DDX includes but is not limited to: Muscle strain, arthritis, DVT, septic joint Vital Signs Vital Signs: Vital Signs Temperature 98.5 F 02/06/25 22:39 Pulse Rate 79 02/06/25 22:39 Respiratory Rate 18 02/06/25 22:39 Blood Pressure 142/83 H 02/06/25 22:39 Pulse Oximetry 95 02/06/25 22:39 Oxygen Delivery Room Air 02/06/25 22:39 Temperature 98.5 F 02/06/25 22:39 Pulse Rate 79 02/06/25 22:39 Respiratory Rate 18 02/06/25 22:39 Blood Pressure 142/83 H 02/06/25 22:39 Pulse Oximetry 95 02/06/25 22:39 Oxygen Delivery Room Air 02/06/25 22:39 Discharge Plan Discharge Clinical Impression: Leg pain Patient Disposition: Home Condition: Stable Instructions: Antibiotic Form, Leg Pain (ED) Additional Instructions: You were seen emergency department for leg pain. You have been scheduled for a DVT ultrasound tomorrow morning at 7:30 a.m. in our radiology department. You have been given a dose of anticoagulation, so if you fall or strike her head tonight please return to the emergency department immediately. Otherwise continue to take Advil for your pain follow-up with your primary care physician and pain specialist for further management. Patient Language: Turkish Prescriptions: No Action venlafaxine [Effexor XR] 150 mg capsule,extended release 24hr 225 mg PO DAILY trazodone 50 mg tablet 25 mg PO DAILY gabapentin 400 mg capsule 400 mg PO BID pramipexole 1.5 mg tablet 1.5 mg PO DAILY Qty: 90 2RF Rx Instructions: Take 1 tablet by mouth 1-2 hours before bedtime. valacyclovir 500 mg tablet 500 mg PO DAILY Qty: 30 6RF Follow-up/Referrals: Tiffany Strickland MD [Primary Care Provider] - 1 Week (knee pain )
[2025-02-07 01:06] VITALS: BP 144/79; PULSE 72; RESP 18; O2SAT 95
== END 2025-02-07 01:08 | disposition home or self-care (01) ==
PROVIDERS: Emergency Provider Emergency Medicine; PCP Family Medicine
DX: M79.604 Pain in right leg (principal); G47.33 Obstructive sleep apnea (adult) (pediatric)
CPT/HCPCS: 73562; 93971; 96372; 99284; A9270; J1650

== ENCOUNTER 2025-02-07 07:56 | Outpatient (CLI) | payer MEDICARE, SELFPAY ==
--- NOTE | ~2025-02-07 | US_ITS ---
EXAMINATION:US venous doppler LE RT INDICATION:Right leg pain TECHNIQUE: Multiple grayscale, color flow and Doppler images of the right lower extremity deep venous systems were obtained and reviewed. COMPARISON:No prior studies for comparison. FINDINGS: The common femoral, superficial femoral and popliteal veins demonstrate normal respiratory variation, augmentation and compressibility. Color flow is also seen within the posterior tibial, pe roneal, greater saphenous and profunda veins. IMPRESSION: 1: No lower extremity deep venous thrombosis. Reviewed, dictated and finalized at location []
--- OUTSIDE RECORDS SUMMARY | 2025-02-07 08:08 | XMS_ITS | Clinical Summary ---
Author Organization [facility] [address] [facility] Address [address] [place] [address] Care Team Providers Care Journeyman Painter Name Role Phone Lucille Camarena NP Primary [...] 06/19/2018 Overview (11/09/2024): UTI;Recorded Elsewhere: No Location: [facility] Source: EHR Chronic: N Practice ID: [id number] Billable Time: 01:00:00 PM Syphilis contact 11/05/2017 Overview (11/09/2024): Encounter for STD screening;Recorded Elsewhere: No Location: [facility] Source: EHR Chronic: N Practice ID: [id number] Billable Time: 10:30:00 AM Osteoarthritis of cervical spine 09/20/2009 Encounters Date Type Department Care Team Description 11/09/2024 8:10 AM CDT - 11/09/2024 11:59 PM CDT Hospital Encounter [facility] [address] [place] [address] Discharge Disposition: Discharge to home or self care 11/09/2024 8:00 AM CDT Office Visit [facility] Orthopaedic Surgery [address] [place] [address] Advanced Medicine [address] [place] [address] [place] [address] Uma Alicea MD De Quervain's syndrome (tenosynovitis) (Primary Dx); Right wrist pain from Last 3 Months Social History Tobacco Use Types Packs/Day Years Used Date Smoking Tobacco: Never Smokeless Tobacco: Never Tobacco Cessation:Counseling Given: Not Answered Comments Unknown Sex and Gender Information Value Date Recorded Sex Assigned at Not on file Legal Sex Female 12:06 PM SCRIPT READER Gender Identity Not on file Sexual Orientation [...] OUTSIDE FILMS Routine 11/09/2024 8:10 AM CDT CO INJECTION 1 TENDON SHEATH/LIGAMENT APONEUROSIS Routine 11/09/2024 8:00 AM CDT De Quervain's syndrome (tenosynovitis) from Last 3 Months Results * XR Outside Reference (11/09/2024 8:10 AM CDT) Impressions [facility] - 11/09/2024 8:10 AM CDT These images are for Reference purposes only and have not been reviewed by [facility]iology. There will be no report generated by a [facility] Radiologist. Narrative [facility] - 11/09/2024 8:10 AM CDT EXAMINATION: Images For Reference Purposes Only us Uma Alicea MD IMG XR PROCEDURES Final Result [facility] * CO INJECTION 1 TENDON SHEATH/LIGAMENT APONEUROSIS (11/09/2024 8:00 [...] Insurance [employer] CHO[employer] MEDICARE PPO Care Teams Journeyman Painter Relationship Specialty Start Date End Date Lucille Camarena NP [address] [place] [address] PCP - General Family Medicine 08/31/24
--- OUTSIDE RECORDS SUMMARY | 2025-02-07 08:08 | XMS_ITS | Referral Summary ---
Author Organization [facility] [address] [facility] Address [address] [place] [address] Care Team Providers Care Multimedia Services Manager Name Role Phone Lucille Camarena NP Primary Care Provider Encounters Date Type Department Care Team Description 11/09/2024 8:10 AM CDT - 11/09/2024 11:59 PM CDT Hospital Encounter [facility] [address] [place] [id number] Discharge Disposition: Discharge to home or self care 11/09/2024 8:00 AM CDT Office Visit [facility] [address] [place] [address] Advanced Medicine 6[address] [place] [address] [place] [id number] Uma Alicea MD De Quervain's syndrome (tenosynovitis) [...] 06/19/2018 Overview (11/09/2024): UTI;Recorded Elsewhere: No Location: [facility] Source: EHR Chronic: N Practice ID: [id number] Billable Time: 01:00:00 PM Syphilis contact 11/05/2017 Overview (11/09/2024): Encounter for STD screening;Recorded Elsewhere: No Location: [facility] Source: EHR Chronic: N Practice ID: [id number] Billable Time: 10:30:00 AM Osteoarthritis of cervical spine 09/20/2009 Social History Tobacco Use Types Packs/Day Years Used Date Smoking Tobacco: Never Smokeless Tobacco: Never Tobacco Cessation:Counseling Given: Not Answered Comments Unknown Sex and Gender Information Value Date Recorded Sex Assigned at Not on file Legal Sex Female 12:06 PM MULTIMEDIA SERVICES MANAGER Gender Identity Not on file Sexual Orientation [...] only and have not been reviewed by [facility]. There will be no report generated by a [facility] Radiologist. Narrative [email or web address] - 11/09/2024 8:10 AM [...] Insurance [employer] PPO Care Teams Multimedia Services Manager Relationship Specialty Start Date End Date Lucille Camarena NP [address] [place] [address] PCP - General Family Medicine 08/31/24
--- OUTSIDE RECORDS SUMMARY | 2025-02-07 08:08 | XMS_ITS | Clinical Summary ---
Author Organization [facility] Address [facility] [place] [address] Care Team Providers Care Material Engineer Name Role Phone Unavailable Primary Care Provider [...]
== END 2025-02-07 07:57 | disposition home or self-care (01) ==
PROVIDERS: PCP Family Medicine; Visit Provider Family Medicine
DX: M79.661 Pain in right lower leg (principal)
CPT/HCPCS: 93971